=== PATIENT | male | born 1940 | race Caucasian/White ===

== ENCOUNTER 2017-11-23 13:45 | Outpatient (CLI) | payer OTHER ==
--- NOTE | 2017-11-23 14:37 | DI ---
EXAM: Eight views of the cervical spine. History: Neck pain. Findings: No acute fracture. No prevertebral soft tissue swelling. Predental space is not widened. 2 mm anterolisthesis of C5 on C6. Mild to moderate multilevel degenerative disc space narrowing wi th a few small osteophytes. The oblique images demonstrate multilevel bilateral bony neural foramina l narrowing secondary to uncovertebral and facet hypertrophy that is worse on the left and at least m oderate in degree. Impression: 1. No acute fracture. 2. Minimal anterolisthesis of C5 on C6. 3. Degenerative changes. If symptoms persist, recommend correlation with MRI.
== END 2017-11-23 13:46 | disposition home or self-care (01) ==
LOC: RAD 13:45
PROVIDERS: ATTEND Family Medicine
DX: M54.2 Cervicalgia (principal)

== ENCOUNTER 2023-06-06 13:45 | Inpatient (IN) ==
[2023-06-06 13:58] VITALS: BMI 28.5
--- NOTE | 2023-06-06 14:25 | ED.PDOC ---
General ED Provider: Dr. FAITH LYNN MD Chief Complaint: Fever Stated Complaint: Patient with history of COPD and hypertension along with dementia complains of having a fever the past 2 days states patient developed a lethargy and confused on occasion denies coughing, dyspnea, difficulty breathing, urinary symptoms, and diarrhea. Patient does complain of having a headache behind his eyes and around his nose. He denies sinus drainage, sore throat, neck stiffness. states that patient has been more confused than normal. Time Seen by Provider: 06/06/23 14:24 Mode of Arrival: Ambulance Information Source: Patient and Family Primary Care Provider: JOHN VANEGAS Nursing and Triage Documentation Reviewed and Agree: Yes Review of Systems Review Of Systems Constitutional: Reports Fever and Malaise Eyes: Reports No symptoms Ears, Nose, Mouth, Throat: Reports Other (Pain around his eyes and his nose denies nasal drainage) Respiratory: Reports No symptoms and Other (Denies coughing, dyspnea,) Cardiac: Reports No symptoms GI: Reports No symptoms : Reports No symptoms Musculoskeletal: Reports No symptoms Skin: Reports No symptoms Neurological: Reports No symptoms Endocrine: Reports No symptoms Hematologic/Lymphatic: Reports No symptoms All Other Systems: Reviewed and Negative [facility] Social History Smoking and tobacco status: Never smoker Physical Exam Physical Exam Appearance: Reports Well-appearing Ill-appearing: None Pain Distress: None Eyes: Reports GAYLA and EOMI ENT: Reports Ears normal Neck: Supple Respiratory: Reports Airway patent, Breath sounds clear and Breath sounds equal Cardiovascular: Reports RRR, Pulses normal, No rub and No murmur GI/: Reports Soft, Nontender, No masses and Bowel sounds normal Musculoskeletal: Reports Normal strength, ROM intact, No edema and No calf tenderness Skin: Reports Warm and Dry Neurological: Reports Sensation intact, Motor intact, Alert and Oriented (Patient is alert oriented x 2 conversational, answers some questions questions appropriately) Psychiatric: Reports Affect appropriate, Mood appropriate and Other Interpretation EKG Interpretation EKG Interpretation By: ED Physician Time of EKG #1: 15:09 Rate: Normal Rhythm: Sinus Ectopy: None [place]: NL ST Segment: Normal Interpretation: Normal sinus rhythm with rate of 75 occasional PVC there is no ischemic jeana Radiology Interpretation Radiology Interpretation By: Radiologist Radiology Results: Negative Exam Interpreted: Portable CXR Xray Comments: No acute cardiopulmonary process Physician Notification Case Discussed Physician Notified: Dr. Vanegas Time of Notification: 20:22 Comments: Discussed the patient's progress and laboratory data as well as portable chest x-ray and his CT scan with the history of patient being more confused than normal recommendations for observation to the hospitalist Physician Notified: Discussed with hospitalist Nicolas Harper Time of Notification: 20:40 Comments: Discussed results of all laboratory data, portable chest x-ray and head CT scan and patient's progress throughout emergency room visit states that the patient be more confused than normal,recommendation made for observation Critical Care Note Critical Care Note Total Critical Care Time (mins): 0 Course Course 06/06/23 15:31 06/06/23 15:31 Orders, Labs, Meds: Lab Review 06/06/23 06/06/23 06/06/23 14:05 15:31 18:37 WBC 10.62 H RBC 4.92 Hgb 16.1 Hct 48.9 MCV 99.4 H MCH 32.7 H MCHC 32.9 RDW Coeff of Vamsi 13.4 Plt Count 223 Immature Gran % (Auto) 0.5 Neut % (Auto) 77.9 H Lymph % (Auto) 9.4 L [place] % (Auto) 11.0 H Eos % (Auto) 0.7 Baso % (Auto) 0.5 Neut # (Auto) 8.3 H Lymph # (Auto) 1.0 [place] # (Auto) 1.2 Eos # (Auto) 0.1 Baso # (Auto) 0.1 Immature Gran # (Auto) 0.1 Sodium 133.4 L Potassium 3.75 Chloride 101.4 Carbon Dioxide 27.3 Anion Gap 8.45 BUN 12.6 Creatinine 1.04 Estimated GFR (MDRD) 68.00 BUN/Creatinine Ratio 12.11 Glucose 125.2 H Calcium 8.98 Total Bilirubin 0.96 AST 21.6 ALT 25.4 Alkaline Phosphatase 72.4 Troponin I 0.013 Total Protein 7.72 Albumin 4.41 Globulin 3.31 Albumin/Globulin Ratio 1.33 Urine Color Yellow Urine Clarity Clear Urine pH 6.5 Ur Specific [place] >=1.030 Urine Protein Negative Urine Glucose (UA) Negative Urine Ketones 1+ H Urine Blood Negative Urine Nitrite Negative Urine Bilirubin Negative Urine Urobilinogen 0.2 Ur Leukocyte Esterase Negative Urine Microscopic WBC 2-5 Ur Squamous Epith Cells 2-5 Influ A Molecular Assay Negative by naat Influ B Molecular Assay Negative by naat SARS CoV-2 RNA Rapid GARRETT Negative Orders Category Date Time Status EKG-(ED ONLY) Stat CARDIO 06/06/23 16:31 Completed CBC W/ AUTO DIFF Stat LAB 06/06/23 15:31 Completed CMP [COMPREHENSIVE METABOLIC PANEL] Stat LAB 06/06/23 15:31 Completed COVID [SARS COV-2 RNA RAPID GARRETT] Stat LAB 06/06/23 14:05 Completed FLU A & B MOLECULAR [FLU A/B MOLECULAR] Stat LAB 06/06/23 14:05 Completed TROPONIN I Stat LAB 06/06/23 15:31 Completed URINALYSIS C & S IF INDICATED Stat LAB 06/06/23 18:37 Completed Ceftriaxone/D5w 1 gm Premix [Rocephin 1 gm/50 ml D5w] Meds 06/06/23 17:16 Discontinued 1 gm in 50 ml IV ONCE Morphine Sulfate [Morphine 2 mg/ml Syringe] Meds 06/06/23 16:15 Discontinued 2 mg IVP ONCE ONE Ondansetron HCl/Pf [Zofran 4 mg/2 ml] Meds 06/06/23 16:15 Discontinued 4 mg IM ONCE STA Sodium Chloride 0.9% [Sodium Chloride] 500 ml Meds 06/06/23 14:30 Discontinued IV 200 mls/hr CHEST, 1V AP ONLY Stat RADS 06/06/23 14:[address] HEAD W/O CONTRAST Stat RADS 06/06/23 14:30 Completed Medications Discontinued Medications Generic Name Dose Route Start Last Admin Trade Name Freq PRN Reason Stop Dose Admin Sodium Chloride 500 mls @ 200 mls/hr 06/06/23 14:30 06/06/23 15:10 Sodium Chloride IV 06/06/23 16:59 200 mls/hr .Q2H30M STA Administration CEFTRIAXONE/D5W 1 GM PREMIX 1 gm in 50 mls @ 100 mls/hr 06/06/23 17:16 06/06/23 17:52 Rocephin 1 Gm/50 Ml D5w IV 06/06/23 17:45 100 mls/hr ONCE ONE Administration Morphine Sulfate 2 mg 06/06/23 16:15 06/06/23 16:26 Morphine Sulfate 2 Mg/Ml Syringe IVP 06/06/23 16:16 2 mg ONCE ONE Administration Ondansetron HCl 4 mg 06/06/23 16:15 06/06/23 16:25 Ondansetron Hcl/Pf 4 Mg/2 Ml Sdv IM 06/06/23 16:16 4 mg ONCE STA Administration Vital Signs: Temp Pulse Resp BP Pulse Ox 06/06/23 13:50 98.4 F 85 18 147/86 H 95 Discharge Plan Discharge Patient Disposition: PLACED OBSERVATION Discharge Problem: Acute alteration in mental status, Fever of unknown origin Prescriptions: No Action clonidine HCl 0.1 mg Tablet 0.4 mg PO BID prednisone 5 mg Tablet 5 mg PO DAILY Rx Instructions: as needed diltiazem HCl 240 mg Capsule,Extended Release 24 Hr 240 mg PO DAILY tamsulosin 0.4 mg Capsule 0.4 mg PO DAILY memantine [Namenda] 10 mg Tablet 5 mg PO QAM levothyroxine 200 mcg tablet 200 mcg PO ONCE albuterol sulfate [Ventolin HFA] 90 mcg/actuation HFA aerosol inhaler 1 inh INHALATION Q6H PRN (Reason: shortness of breath or wheezing) hydrocodone-acetaminophen 5-325 mg tablet 1 tab PO Q6H PRN (Reason: pain) Rx Instructions: 5/325 alendronate 35 mg tablet 35 mg PO WEEKLY fluticasone furoate-vilanterol [Breo Ellipta] 200-25 mcg/dose blister with device 1 inh inhalation DAILY calcium carbonate 500 mg calcium (1,250 mg) tablet 500 mg PO DAILY melatonin 10 mg capsule 10 mg PO BEDTIME aspirin [Adult Low Dose Aspirin] 81 mg tablet,delayed release (DR/EC) 81 mg PO DAILY diphenhydramine HCl [Benadryl] 25 mg capsule 25 mg PO BEDTIME multivitamin [Daily Multi-Vitamin] Tablet 1 tab PO DAILY Did you review [place] [employer] for ALL controlled substances?: Not Applicable ED Provider: FAITH LYNN Condition: Stable Physician Progress Note: History obtained from patient although spouse patient is a history of dementia, COPD hypertension has had a fever the past 2 days. Denies history of coughing, nasal congestion, dyspnea chest pain diaphoresis palpitations arthralgia nausea vomiting diarrhea. Patient reported having a headache behind his eyes and around his nose. states that patient has been more confused than normal EKG interpretation normal sinus rhythm rate of 75 occasional PVC there is no ischemic changes there is no prolongation of ND QT interval. Portable chest x-ray interpretation by radiologist, shows no acute cardiopulmonary process. Head CT scan interpretation by radiologist shows no infarction hemorrhage midline shift. All laboratory data reveals normal limits CBC, BMP, COVID is negative, influenza A and influenza B are negative Patient given normal saline 1 L at 200 mL/hour, Patient administered Rocephin 1 g IV piggyback for frontal sinusitis. Patient also administered morphine sulfate 2 mg and Zofran 4 mg IV Differential diagnosis: 1) fever unknown origin 2) altered mental status Discussed with Dr. Guy at 2021 with recommendations for observation to the hospitalist. Discussed with Nicolas Harper hospitalist at 2043 observation []
[2023-06-06] MEDS ORDERED: SODIUM CHLORIDE 500 ML IV STA (14:30)
[2023-06-06 14:56] LABS: SARS COV-2 RNA RAPID NAAT NEGATIVE (NEGATIVE)
[2023-06-06 15:20] LABS: MOLECULAR FLU A NEGATIVE BY NAAT (NEGATIVE); MOLECULAR FLU B NEGATIVE BY NAAT (NEGATIVE)
[2023-06-06 15:37] LABS: BASOPHILS # (AUTO) 0.1 K/uL (0-0.2); BASOPHILS % (AUTO) 0.5 % (0.0-3.0); EOSINOPHILS # (AUTO) 0.1 K/ul (0.0-0.7); EOSINOPHILS % (AUTO) 0.7 % (0.0-7.0); HEMATOCRIT 48.9 % (42.0-52.0); HEMOGLOBIN 16.1 g/dl (14.0-18.0); IMMATURE GRANULOCYTE # (AUTO) 0.1 (0.0-1.0); IMMATURE GRANULOCYTE % (AUTO) 0.5 % (0.0-5.0); LYMPHOCYTES % (AUTO) 9.4 (10.0-50.0); MEAN CORPUSCULAR HEMOGLOBIN 32.7 pg (27.0-31.0); MEAN CORPUSCULAR HGB CONC 32.9 (31.8-35.4); MEAN CORPUSCULAR VOLUME 99.4 fl (80.0-94.0); MONOCYTES # (AUTO) 1.2 K/uL (0.4-2.0); NEUTROPHILS # (AUTO) 8.3 K/ul (2.0-6.9); NEUTROPHILS % (AUTO) 77.9 % (42.2-75.2); PLATELET COUNT 223 10^3/uL (140-440); RDW COEFFICIENT OF VARIATION 13.4 % (11.6-14.8); RED BLOOD COUNT 4.92 10^6/ul (4.70-6.10); WHITE BLOOD COUNT 10.62 K/ul (4.2-10.2)
[2023-06-06 15:48] LABS: ALANINE AMINOTRANSFERASE 25.4 U/L (0-50); ALBUMIN 4.41 g/dL (3.5-5.0); ALKALINE PHOSPHATASE 72.4 U/L (56-119); ASPARTATE AMINO TRANSFERASE 21.6 U/L (17-59); BILIRUBIN,TOTAL 0.96 mg/dL (0.2-1.3); BLOOD UREA NITROGEN 12.6 mg/dL (9-20); CALCIUM 8.98 mg/dL (8.4-10.2); CARBON DIOXIDE 27.3 mmol/L (22-30.0); CHLORIDE 101.4 mmol/L (98-107); CREATININE 1.04 mg/dL (0.60-1.10); GLUCOSE 125.2 mg/dL (74-106); POTASSIUM 3.75 mmol/L (3.5-5.1); SODIUM 133.4 mmol/L (134.5-145); TOTAL PROTEIN 7.72 g/dL (6.3-8.2)
--- NOTE | 2023-06-06 15:53 | DI ---
EXAM: CHEST RADIOGRAPH TECHNIQUE: Single frontal chest radiograph. COMPARISON: 02/03/2020 HISTORY: Cough FINDINGS: The heart and mediastinum are normal. The lungs and pleural spaces are stable. No acute abnormality of the bones or soft tissues is identified. IMPRESSION: No evidence of acute disease.
[2023-06-06 16:00] LABS: TROPONIN I 0.013 ng/ml (0.0000-0.120)
--- NOTE | 2023-06-06 16:07 | CT ---
EXAM: CT HEAD WITHOUT CONTRAST TECHNIQUE: Noncontrast CT of the head with multiple reformats. HISTORY: Headache behind eyes. Altered mental status. COMPARISON: CT head 03/01/2020. FINDINGS: No evidence of acute infarction, hemorrhage, or mass. Enlarged perivascular spaces in the basal ganglia. Mild brain volume loss. Mild nonspecific white m atter hypodensities, likely chronic small vessel changes. No brain herniation. Patent basilar cisterns. Ventricles are proportional to brain volume. No acute osseous abnormality. Bilateral lens replacements of the globes. Mild atherosclerotic calcifications of the carotid siphons and vertebral arteries. IMPRESSION: No acute intracranial abnormality. Senescent changes. All CT scans are performed using dose optimization techniques as appropriate to the performed exam an d include at least one of the following: Automated exposure control, adjustment of the mA and/or kV according t o size, and the use of iterative reconstruction technique.
[2023-06-06] MEDS ORDERED: MORPHINE 2 MG/ML SYRINGE IVP ONE (16:15)
[2023-06-06] MEDS ORDERED: ZOFRAN 4 MG/2 ML IM STA (16:15)
[2023-06-06] MEDS ORDERED: ROCEPHIN 1 GM/50 ML D5W 1 GM/50 ML BAG IV ONE (17:16)
[2023-06-06 18:46] LABS: BILIRUBIN,URINE Negative (NEGATIVE); CLARITY,URINE Clear (CLEAR); COLOR,URINE Yellow (YELLOW); GLUCOSE, URINE (UA) Negative (NEGATIVE); KETONES,URINE 1+ (NEGATIVE); LEUKOCYTE ESTERASE ,URINE Negative (NEGATIVE); NITRITE,URINE Negative (NEGATIVE); PH,URINE 6.5 (5-9); PROTEIN,URINE Negative (NEGATIVE); URINE, BLOOD Negative (NEGATIVE); UROBILINOGEN,URINE 0.2 (0.2)
[2023-06-06] MEDS ORDERED: SODIUM CHLORIDE 1,000 ML IV SCH (21:00)
[2023-06-06 21:46] LABS: RSV MOLECULAR NEGATIVE BY NAAT (NEGATIVE)
[2023-06-06] MEDS ORDERED: ATIVAN IVP ONE (22:29)
[2023-06-07 05:45] LABS: BASOPHILS % (AUTO) 0.4 % (0.0-3.0); HEMATOCRIT 40.7 % (42.0-52.0); HEMOGLOBIN 13.8 g/dl (14.0-18.0); IMMATURE GRANULOCYTE % (AUTO) 0.4 % (0.0-5.0); LYMPHOCYTES # (AUTO) 0.9 K/uL (0.60-3.4); LYMPHOCYTES % (AUTO) 8.4 (10.0-50.0); MEAN CORPUSCULAR HEMOGLOBIN 33.1 pg (27.0-31.0); MEAN CORPUSCULAR HGB CONC 33.9 (31.8-35.4); MEAN CORPUSCULAR VOLUME 97.6 fl (80.0-94.0); MONOCYTES # (AUTO) 1.1 K/uL (0.4-2.0); MONOCYTES % (AUTO) 10.3 (0-10); NEUTROPHILS # (AUTO) 8.7 K/ul (2.0-6.9); NEUTROPHILS % (AUTO) 80.5 % (42.2-75.2); PLATELET COUNT 208 10^3/uL (140-440); RDW COEFFICIENT OF VARIATION 13.1 % (11.6-14.8); RED BLOOD COUNT 4.17 10^6/ul (4.70-6.10); WHITE BLOOD COUNT 10.84 K/ul (4.2-10.2)
[2023-06-07 06:08] LABS: ALANINE AMINOTRANSFERASE 21.1 U/L (0-50); ALBUMIN 3.67 g/dL (3.5-5.0); ALKALINE PHOSPHATASE 47.3 U/L (56-119); BILIRUBIN,TOTAL 0.69 mg/dL (0.2-1.3); BLOOD UREA NITROGEN 11.6 mg/dL (9-20); CALCIUM 7.77 mg/dL (8.4-10.2); CARBON DIOXIDE 19.8 mmol/L (22-30.0); CREATININE 0.72 mg/dL (0.60-1.10); GLUCOSE 113.2 mg/dL (74-106); SODIUM 128.4 mmol/L (134.5-145); TOTAL PROTEIN 6.46 g/dL (6.3-8.2)
[2023-06-07 06:11] LABS: POTASSIUM 3.84 mmol/L (3.5-5.1)
[2023-06-07] MEDS: CALCIUM 500 + VIT D 5 MCG (200 IU) TABLET PO SCH (09:00)
[2023-06-07] MEDS: CATAPRES PO SCH ×2 (09:00→21:22)
[2023-06-07] MEDS: SODIUM CHLORIDE PO SCH ×4 (09:00→21:23)
[2023-06-07] MEDS: CARDIZEM CD PO SCH (09:00)
[2023-06-07] MEDS ORDERED: ASPIRIN EC PO SCH (09:00)
[2023-06-07] MEDS ORDERED: PREDNISONE PO SCH (09:00)
[2023-06-07] MEDS: MULTIVITAMIN TABLET PO SCH (09:05)
[2023-06-07] MEDS: SYMBICORT 160-4.5 MCG INHALER IH SCH ×2 (09:05→21:23)
[2023-06-07] MEDS: NAMENDA PO SCH (09:05)
[2023-06-07] MEDS: FLOMAX PO SCH (09:05)
[2023-06-07] MEDS: SODIUM CHLORIDE 1,000 ML IV SCH ×2 (09:29→17:52)
[2023-06-07] MEDS: ACETAMINOPHEN 1,000 MG/100 ML BAG IV PRN ×2 (10:50→18:33)
--- NOTE | 2023-06-07 10:52 | PCM ---
Date of Service Date Seen by Provider: 06/07/23 Time Seen by Provider: 09:00 Admit Day/Time Admission Date: 06/06/23 Reason for Admission Chief Complaint: FEVER; ALTERED MENTAL STATUS Hospital Provider Hospital Provider: LISA ALBRIGHT, [facility] [place] Care Physician Primary Care Physician: JOHN VANEGAS History of Present Illness History of Present Illness: 83 yo male presented to the ER with confusion and fever. Patient has pmh of dementia and is unable to provide HPI. reports that he has had mild dementia of memory loss including disorientation of place and time. However, he is normally able to carry on ADLs with minimal assistance. Since Monday, patient has not been able to carry out ADLs, increasing confusion and impulsiveness, and fever. Had complaints of headache but no other symptoms prior. Had a fever at home as high as 102. All testing in ER negative. Has not had fever since admission, but has continued to be confused. Sodium this am was found to be 128 despite IV fluids overnight. P atient is not on any medications to lower sodium, and has not been eating or drinking. Case Discussed With Case Discussed With: Patient's case was discussed with the ER Physicians, Dr. Rodriguez. [facility] Medical History Hernia, inguinal, bilateral surgical repair K40.20 - Bilateral inguinal hernia, without obstruction or gangrene, not specified as recurrent (ICD-10) Umbilical hernia repaired K42.9 - Umbilical hernia without obstruction or gangrene (ICD-10) Umbilical hernia K42.9 - Umbilical hernia without obstruction or gangrene (ICD-10) HTN (hypertension) I10 - Essential (primary) hypertension (ICD-10) HTN (hypertension) I10 - Essential (primary) hypertension (ICD-10) Family History Mother CAD (coronary artery disease) FATHER Myocardial infarction Social History Smoking and tobacco status: Never smoker Alcohol intake: unknown Adopted: No Household members: spouse Housing: house Lives independently: Yes Allergies Allergies Allergy/AdvReac Type Severity Reaction Status Date / Time ibuprofen AdvReac Fever Verified 06/06/23 13:49 Current Medications Home Medications clonidine HCl 0.1 mg tablet 0.4 mg PO BID 02/03/20 [History Confirmed 06/07/23 Last Taken 06/06/23] diltiazem HCl 240 mg capsule,24 hr,extended release 240 mg PO DAILY 02/03/20 [History Confirmed 06/07/23 Last Taken 06/06/23] prednisone 5 mg tablet 5 mg PO DAILY 02/03/20 [History Confirmed 06/07/23 Last Taken 06/06/23] tamsulosin 0.4 mg capsule 0.4 mg PO DAILY 02/03/20 [History Confirmed 06/07/23 Last Taken 06/06/23] memantine 10 mg tablet (Namenda) 5 mg PO QAM 12/27/20 [History Confirmed 06/07/23 Last Taken 06/06/23] albuterol sulfate 90 mcg/actuation aerosol inhaler (Ventolin HFA) 1 inh inhalation Q6H PRN shortness of breath or wheezing 06/06/23 [History Confirmed 06/06/23 Last Taken Unknown] alendronate 35 mg tablet 35 mg PO WEEKLY 06/06/23 [History Confirmed 06/07/23 Last Taken 05/31/23] aspirin 81 mg tablet,delayed release (Adult Low Dose Aspirin) 81 mg PO DAILY 06/06/23 [History Confirmed 06/07/23 Last Taken 06/06/23] calcium carbonate 500 mg calcium (1,250 mg) tablet 500 mg PO DAILY 06/06/23 [History Confirmed 06/07/23 Last Taken 06/06/23] diphenhydramine HCl 25 mg capsule (Benadryl) 25 mg PO BEDTIME 06/06/23 [History Confirmed 06/06/23 Last Taken Unknown] fluticasone furoate 200 mcg-vilanterol 25 mcg/dose inhalation powder (Breo Ellipta) 1 inh inhalation DAILY 06/06/23 [History Confirmed 06/07/23 Last Taken 06/06/23] hydrocodone 5 mg-acetaminophen 325 mg tablet 1 tab PO Q6H PRN pain 06/06/23 [History Confirmed 06/06/23 Last Taken 06/06/23 12:00 1 tab] levothyroxine 200 mcg tablet 200 mcg PO ONCE 06/06/23 [History Confirmed 06/07/23 Last Taken 06/06/23] melatonin 10 mg capsule 10 mg PO BEDTIME 06/06/23 [History Confirmed 06/07/23 Last Taken 06/06/23] multivitamin (Daily Multi-Vitamin tablet) 1 tab PO DAILY 06/06/23 [History Confirmed 06/07/23 Last Taken 06/06/23] Home Acetaminophen (Acetaminophen 325 Mg Tablet) 650 mg PO Q4H PRN PRN Reason: Mild Pain Aspirin (Aspirin 81 Mg Tablet.Dr) 81 mg PO DAILY [facility] Last Admin: 06/07/23 09:00 Dose: Not Given Budesonide/Formoterol Fumarate (Budesonide/Formoterol Fumarate 160/4.5 Mcg Inhaler) 2 puff IH BID [facility] Last Admin: 06/07/23 09:05 Dose: Not Given Calcium/Vitamin D (Calcium Carbonate/Vitamin D3 500 Mg/5 Mcg(200iu) 1 Each Tablet) 1 each PO DAILY [facility] Last Admin: 06/07/23 09:00 Dose: Not Given Clonidine (Clonidine Hcl 0.1 Mg Tablet) 0.4 mg PO BID [facility] Last Admin: 06/07/23 09:00 Dose: Not Given Diltiazem HCl (Diltiazem Hcl 120 Mg Cap.Er.24h) 240 mg PO DAILY [facility] Last Admin: 06/07/23 09:00 Dose: Not Given Diphenhydramine HCl (Diphenhydramine Hcl 25 Mg Capsule) 25 mg PO BEDTIME [facility] Sodium Chloride (Sodium Chloride) 1,000 mls @ 125 mls/hr IV .Q8H [facility] Last Admin: 06/07/23 09:29 Dose: 125 mls/hr Acetaminophen (Acetaminophen) 1,000 mg in 100 mls @ 400 mls/hr IV Q6HR PRN PRN Reason: Pain Last Admin: 06/07/23 10:50 Dose: 400 mls/hr Melatonin (Melatonin 3 Mg Tablet) 9 mg PO BEDTIME [facility] Memantine (Memantine Hcl 10 Mg Tablet) 5 mg PO QAM [facility] Last Admin: 06/07/23 09:05 Dose: Not Given Multivitamins (Multivitamin 1 Tab) 1 tab PO DAILY [facility] Last Admin: 06/07/23 09:05 Dose: Not Given Non-Formulary Medication (Alendronate) 35 mg PO WEEKLY FOSAMAX2 [facility] Last Admin: 06/07/23 09:00 Dose: Not Given Prednisone (Prednisone 5 Mg Tablet) 5 mg PO DAILY [facility] Last Admin: 06/07/23 09:05 Dose: Not Given Sodium Chloride (Sodium Chloride 1 Gm Tablet) 1 gm PO QID [facility] Last Admin: 06/07/23 09:00 Dose: Not Given Tamsulosin HCl (Tamsulosin Hcl 0.4 Mg Cap.Er.24h) 0.4 mg PO DAILY [facility] Last Admin: 06/07/23 09:05 Dose: Not Given Discontinued Medications Sodium Chloride (Sodium Chloride) 500 mls @ 200 mls/hr IV .Q2H30M STA Stop: 06/06/23 16:59 Last Infusion: 06/07/23 07:11 Dose: Infused CEFTRIAXONE/D5W 1 GM PREMIX (Rocephin 1 Gm/50 Ml D5w) 1 gm in 50 mls @ 100 mls/hr IV ONCE ONE Stop: 06/06/23 17:45 Last Admin: 06/06/23 17:52 Dose: 100 mls/hr Sodium Chloride (Sodium Chloride) 1,000 mls @ 75 mls/hr IV .[id number] [facility] Last Infusion: 06/07/23 09:30 Dose: Infused Lorazepam (Lorazepam Inj 2 Mg/Ml Vial) 1 mg IVP ONCE ONE Stop: 06/06/23 22:30 Last Admin: 06/06/23 23:03 Dose: 1 mg Morphine Sulfate (Morphine Sulfate 2 Mg/Ml Syringe) 2 mg IVP ONCE ONE Stop: 06/06/23 16:16 Last Admin: 06/06/23 16:26 Dose: 2 mg Non-Formulary Medication (Calcium Carbonate) 500 mg PO DAILY [facility] Non-Formulary Medication (Fluticasone Furoate-Vilanterol [Breo Ellipta]) 1 inh IH DAILY [facility] Ondansetron HCl (Ondansetron Hcl/Pf 4 Mg/2 Ml Sdv) 4 mg IM ONCE STA Stop: 06/06/23 16:16 Last Admin: 06/06/23 16:25 Dose: 4 mg Physical examination Most Recent Vital Signs: Most Recent Vital Signs Temperature 99.7 F 06/07/23 10:00 Temperature Source Tympanic 06/07/23 10:00 Temperature Source Oral 06/06/23 13:50 Pulse Rate 87 06/07/23 10:00 Respiratory Rate 20 06/07/23 10:00 Blood Pressure 153/75 H 06/07/23 10:00 Blood Pressure Mean 101 06/07/23 10:00 Blood Pressure Left Arm 171/84 06/06/23 21:56 Blood Pressure Location Left Arm 06/07/23 10:00 Blood Pressure Position Supine 06/07/23 10:00 O2 Sat by Pulse Oximetry 95 06/07/23 10:00 Oxygen Delivery Method Room Air 06/07/23 10:00 Height 6 ft 06/06/23 21:56 Weight 210 lb 06/06/23 21:56 Appearance: Positive No Apparent Distress Skin: Positive Warm and Good Turgor HEENT: Positive Normocephalic and PERRLA Neck: Positive Supple and Midline Trachea Chest/Lungs: Positive Symmetrical With Equal Breath Sounds, Clear to Auscultation Bilaterally and Good Air Movement all 4 Lung Davis Heart: Positive RRR and Pulses Normal GI/: Positive Soft, Nontender and Bowel Sounds Normal Extremities: Positive Intact Peripheral Pulses, Stable Joints Without Laxity and Good ROM in All Joints Neurological: Positive Sensation Intact, Motor intact, Disorinted and Other (unable to follow commands) Labs This Visit Labs This Visit: Labs This Visit 06/06/23 06/06/23 06/06/23 14:05 15:31 18:37 WBC 10.62 H RBC 4.92 Hgb 16.1 Hct 48.9 MCV 99.4 H MCH 32.7 H MCHC 32.9 RDW Coeff of Vamsi 13.4 Plt Count 223 Immature Gran % (Auto) 0.5 Neut % (Auto) 77.9 H Lymph % (Auto) 9.4 L [place] % (Auto) 11.0 H Eos % (Auto) 0.7 Baso % (Auto) 0.5 Neut # (Auto) 8.3 H Lymph # (Auto) 1.0 [place] # (Auto) 1.2 Eos # (Auto) 0.1 Baso # (Auto) 0.1 Immature Gran # (Auto) 0.1 Sodium 133.4 L Potassium 3.75 Chloride 101.4 Carbon Dioxide 27.3 Anion Gap 8.45 BUN 12.6 Creatinine 1.04 Estimated GFR (MDRD) 68.00 BUN/Creatinine Ratio 12.11 Glucose 125.2 H Calcium 8.98 Total Bilirubin 0.96 AST 21.6 ALT 25.4 Alkaline Phosphatase 72.4 Troponin I 0.013 Total Protein 7.72 Albumin 4.41 Globulin 3.31 Albumin/Globulin Ratio 1.33 Procalcitonin Urine Color Yellow Urine Clarity Clear Urine pH 6.5 Ur Specific [place] >=1.030 Urine Protein Negative Urine Glucose (UA) Negative Urine Ketones 1+ H Urine Blood Negative Urine Nitrite Negative Urine Bilirubin Negative Urine Urobilinogen 0.2 Ur Leukocyte Esterase Negative Urine Microscopic WBC 2-5 Ur Squamous Epith Cells 2-5 Influ A Molecular Assay Negative by naat Influ B Molecular Assay Negative by naat RSV Antigen SARS CoV-2 RNA Rapid GARRETT Negative 06/06/23 06/06/23 06/07/23 20:54 21:11 05:31 WBC 10.84 H RBC 4.17 L Hgb 13.8 L Hct 40.7 L D MCV 97.6 H MCH 33.1 H MCHC 33.9 RDW Coeff of Vamsi 13.1 Plt Count 208 Immature Gran % (Auto) 0.4 Neut % (Auto) 80.5 H Lymph % (Auto) 8.4 L [place] % (Auto) 10.3 H Eos % (Auto) 0.0 Baso % (Auto) 0.4 Neut # (Auto) 8.7 H Lymph # (Auto) 0.9 [place] # (Auto) 1.1 Eos # (Auto) 0.0 Baso # (Auto) 0.0 Immature Gran # (Auto) 0.0 Sodium 128.4 L Potassium 3.84 Chloride 101.0 Carbon Dioxide 19.8 L D Anion Gap 11.44 BUN 11.6 Creatinine 0.72 Estimated GFR (MDRD) 105.00 BUN/Creatinine Ratio 16.11 Glucose 113.2 H Calcium 7.77 L Total Bilirubin 0.69 AST 22.0 ALT 21.1 Alkaline Phosphatase 47.3 L D Troponin I Total Protein 6.46 Albumin 3.67 Globulin 2.79 Albumin/Globulin Ratio 1.31 Procalcitonin < 0.05 Urine Color Urine Clarity Urine pH Ur Specific [place] Urine Protein Urine Glucose (UA) Urine Ketones Urine Blood Urine Nitrite Urine Bilirubin Urine Urobilinogen Ur Leukocyte Esterase Urine Microscopic WBC Ur Squamous Epith Cells Influ A Molecular Assay Influ B Molecular Assay RSV Antigen Negative by naat SARS CoV-2 RNA Rapid GARRETT Imaging Imaging: COMPARISON: CT head 03/01/2020. FINDINGS: No evidence of acute infarction, hemorrhage, or mass. Enlarged perivascular spaces in the basal ganglia. Mild brain volume loss. Mild nonspecific white matter hypodensities, likely chronic small vessel changes. No brain herniation. Patent basilar cisterns. Ventricles are proportional to brain volume. No acute osseous abnormality. Bilateral lens replacements of the globes. Mild atherosclerotic calcifications of the carotid siphons and vertebral arteries. IMPRESSION: No acute intracranial abnormality. Senescent changes. EXAM: CHEST RADIOGRAPH FINDINGS: The heart and mediastinum are normal. The lungs and pleural spaces are stable. No acute abnormality of the bones or soft tissues is identified. IMPRESSION: No evidence of acute disease. Review Statement Review Statement: I have independently reviewed and interpreted the labs/EKGs/imaging that were ordered by the ER provider. I have reviewed all outside records that are available currently in our EMR including imaging/notes/labs from previous visits. Plan Plan: 1. Symptomatic Hyponatremia - low sodium despite fluids, AMS noted, NS@100mL/hr, salt tabs, osmolalities ordered 2. Fever, unknown origin - UA, chest x-ray, covid, flu, RSV negative. unable to complete respiratory panel, blood cultures pending 3. Acute Metabolic Encephalopathy - likely due to above and viral illness, avoid neurologically altering agents, monitor. 4. Dementia - r/o acute illness, appears worsening, dispo tbd 5. A fib - chronic, stable, continue home medications 6. Hypertension - chronic, continue home medications DVT Prophylaxis: ASA Time Spent: Greater than 80 minutes spent with patient, 50% of the time spent with this patient was devoted to counseling and coordination of care. [facility] Plannin minutes spent discussing advance care planning. Disposition: Admit to: Med/Surg Inpatient Discussed Plan of Care with Dr. Guadalupe Zeng. Medications Medication Orders: Medications Ordered Category Date Time Status Acetaminophen Meds 06/07/23 10:23 Active 1,000 mg in 100 ml IV Q6HR Acetaminophen [Tylenol] Meds 06/06/23 20:41 Active 650 mg PO Q4H PRN Aspirin [Aspirin EC] Meds 06/07/23 09:00 Active 81 mg PO DAILY Budesonide/Formoterol Fumarate [Symbicort 160-4.5 Mcg Meds 06/07/23 09:00 Active Inhaler] 2 puff IH BID Calcium Carbonate/Vitamin D3 [Calcium 500 + Vit D 5 Mcg Meds 06/07/23 09:00 Active (200 Iu) Tablet] 1 each PO DAILY Clonidine HCl [Catapres] Meds 06/07/23 09:00 Active 0.4 mg PO BID Diltiazem HCl [Cardizem Cd] Meds 06/07/23 09:00 Active 240 mg PO DAILY Diphenhydramine HCl [Benadryl] Meds 06/07/23 21:00 Active 25 mg PO BEDTIME Melatonin Meds 06/07/23 21:00 Active 9 mg PO BEDTIME Memantine HCl [Namenda] Meds 06/07/23 09:00 Active 5 mg PO QAM Multivitamin [Multivitamin Tablet] Meds 06/07/23 09:00 Active 1 tab PO DAILY Prednisone Meds 06/07/23 09:00 Active 5 mg PO DAILY Sodium Chloride Meds 06/07/23 09:00 Active 1 gm PO QID Sodium Chloride 0.9% [Sodium Chloride] 1,000 ml Meds 06/07/23 08:14 Active IV 125 mls/hr Tamsulosin HCl [Flomax] Meds 06/07/23 09:00 Active 0.4 mg PO DAILY alendronate Meds 06/07/23 09:00 Active 35 mg PO WEEKLY FOSAMAX2
[2023-06-07 16:21] LABS: BLOOD UREA NITROGEN 12.9 mg/dL (9-20); CALCIUM 8.32 mg/dL (8.4-10.2); CARBON DIOXIDE 24.2 mmol/L (22-30.0); CHLORIDE 99.4 mmol/L (98-107); CREATININE 0.8 mg/dL (0.60-1.10); GLUCOSE 102.6 mg/dL (74-106); POTASSIUM 3.99 mmol/L (3.5-5.1); SODIUM 131.2 mmol/L (134.5-145)
[2023-06-07] MEDS: VISTARIL INJ IM PRN (16:44)
[2023-06-07] MEDS ORDERED: BENADRYL IVP STA (19:35)
[2023-06-07] MEDS ORDERED: BENADRYL PO SCH (21:00)
[2023-06-07] MEDS ORDERED: BENADRYL 25 MG in SODIUM CHLORIDE 100ML 100 ML IV SCH (21:00)
[2023-06-07] MEDS ORDERED: NON-FORMULARY MEDICATION (Melatonin 10 mg capsule) PO SCH (21:00)
[2023-06-07] MEDS: MELATONIN PO SCH (21:23)
--- NOTE | 2023-06-07 22:33 | CT ---
EXAM: CT OF THE CHEST WITHOUT CONTRAST History: Short of breath Comparison: Chest radiograph 06/06/2023 Technique: Multiplanar CT images through the thorax were obtained without the administration of IV c ontrast FINDINGS: Heart size is normal. Trace pericardial fluid. Coronary calcifications. No thoracic aor tic aneurysm. No intrathoracic lymphadenopathy. Benign calcified granulomas are seen within the tho rax. No consolidation within the lungs. No pleural fluid and no pneumothorax. A few tiny the 3-4 m m nodules are seen within the left lung. No suspicious lung masses or lung nodules. Within the visualized upper abdomen, no grossly acute findings. The gallbladder is mildly distended. No acute osseous abnormalities. Impression: 1. No acute intrathoracic process. 2. Coronary artery disease 3. Small benign appearing nodules within the left lung most likely an infectious or inflammatory cale ology All CT scans are performed using dose optimization techniques as appropriate to the performed exam an d include at least one of the following: Automated exposure control, adjustment of the mA and/or kV according t o size, and the use of iterative reconstruction technique.
[2023-06-08] MEDS: VISTARIL INJ IM PRN (02:13)
[2023-06-08] MEDS: SODIUM CHLORIDE 1,000 ML IV SCH ×3 (03:02→20:27)
[2023-06-08 06:13] LABS: BASOPHILS % (AUTO) 0.3 % (0.0-3.0); EOSINOPHILS % (AUTO) 0.1 % (0.0-7.0); HEMATOCRIT 41.7 % (42.0-52.0); HEMOGLOBIN 14.4 g/dl (14.0-18.0); IMMATURE GRANULOCYTE % (AUTO) 0.3 % (0.0-5.0); LYMPHOCYTES # (AUTO) 1.2 K/uL (0.60-3.4); LYMPHOCYTES % (AUTO) 9.5 (10.0-50.0); MEAN CORPUSCULAR HEMOGLOBIN 33.5 pg (27.0-31.0); MEAN CORPUSCULAR HGB CONC 34.5 (31.8-35.4); MONOCYTES # (AUTO) 1.4 K/uL (0.4-2.0); MONOCYTES % (AUTO) 10.6 (0-10); NEUTROPHILS # (AUTO) 10.2 K/ul (2.0-6.9); NEUTROPHILS % (AUTO) 79.2 % (42.2-75.2); PLATELET COUNT 224 10^3/uL (140-440); RDW COEFFICIENT OF VARIATION 12.9 % (11.6-14.8); WHITE BLOOD COUNT 12.82 K/ul (4.2-10.2)
[2023-06-08 06:39] LABS: ALANINE AMINOTRANSFERASE 26.5 U/L (0-50); ALBUMIN 3.79 g/dL (3.5-5.0); ALKALINE PHOSPHATASE 54.3 U/L (56-119); ASPARTATE AMINO TRANSFERASE 43.9 U/L (17-59); BILIRUBIN,TOTAL 0.78 mg/dL (0.2-1.3); BLOOD UREA NITROGEN 14.8 mg/dL (9-20); CALCIUM 8.49 mg/dL (8.4-10.2); CARBON DIOXIDE 23.2 mmol/L (22-30.0); CHLORIDE 101.4 mmol/L (98-107); CREATININE 0.86 mg/dL (0.60-1.10); GLUCOSE 91.2 mg/dL (74-106); POTASSIUM 3.98 mmol/L (3.5-5.1); SODIUM 131.2 mmol/L (134.5-145); TOTAL PROTEIN 6.24 g/dL (6.3-8.2)
[2023-06-08] MEDS ORDERED: GLYDO TRANSURETH ONE (09:40)
[2023-06-08] MEDS ORDERED: ATIVAN IVP ONE (09:46)
[2023-06-08] MEDS: CALCIUM 500 + VIT D 5 MCG (200 IU) TABLET PO SCH (09:47)
[2023-06-08] MEDS: ASPIRIN EC PO SCH (09:47)
[2023-06-08] MEDS: CATAPRES PO SCH ×2 (09:48→20:41)
[2023-06-08] MEDS: MULTIVITAMIN TABLET PO SCH (09:48)
[2023-06-08] MEDS: NAMENDA PO SCH (09:48)
[2023-06-08] MEDS: CARDIZEM CD PO SCH (09:48)
[2023-06-08] MEDS: FLOMAX PO SCH (09:48)
[2023-06-08] MEDS: PREDNISONE PO SCH (09:49)
[2023-06-08] MEDS: SODIUM CHLORIDE PO SCH ×4 (09:49→20:41)
[2023-06-08] MEDS: SYMBICORT 160-4.5 MCG INHALER IH SCH ×2 (09:49→20:41)
[2023-06-08] MEDS: ROCEPHIN 1 GM/50 ML D5W 1 GM/50 ML BAG IV SCH (10:18)
[2023-06-08 11:10] LABS: BILIRUBIN,URINE Negative (NEGATIVE); CLARITY,URINE Clear (CLEAR); COLOR,URINE Yellow (YELLOW); GLUCOSE, URINE (UA) Negative (NEGATIVE); KETONES,URINE 3+ (NEGATIVE); LEUKOCYTE ESTERASE ,URINE Negative (NEGATIVE); NITRITE,URINE Negative (NEGATIVE); PROTEIN,URINE Negative (NEGATIVE); URINE, BLOOD 3+ (NEGATIVE); UROBILINOGEN,URINE 0.2 (0.2)
[2023-06-08] MEDS: VANCOMYCIN 1 GRAM/200 ML PREMIX 1 GM/200 ML BAG IV SCH ×2 (11:17→20:24)
[2023-06-08 11:21] LABS: URINE RBC, MICROSCOPIC 50-100 (0-2)
--- NOTE | 2023-06-08 12:08 | PCM.PROG ---
Date/Time Seen Date Seen by Provider: 06/08/23 Time Seen by Provider: 09:15 Provider [facility] Chief Complaint Chief Complaint: FEVER; ALTERED MENTAL STATUS Subjective Subjective: Continues to have fever. More awake and talkative today. Complaining to holding lower abdomen. Had to be straight cathed last night due to no urine output. Has hx of BPH. Objective Appearance: Positive Ill-Appearing Chest/Lungs: Positive Symmetrical With Equal Breath Sounds, Clear to Auscultation Bilaterally and Good Air Movement all 4 Lung Davis Heart: Positive RRR and Pulses Normal GI/: Positive Soft, Bowel Sounds Normal and Tender (to lower abdomen) Neurological: Positive Sensation Intact, Motor intact, Reflexes Intact, Disorinted and Other (responsive to verbal and painful stimuli, answering simple questions) Additional Findings: Rectal exam completed: prostate enlarged and tender on palpation Vital Signs Vital Signs: Vital Signs: Last 24 Hours 06/07/23 13:00 06/07/23 14:00 06/07/23 18:00 Temperature 98.9 F 99.1 F Temperature Source Tympanic Tympanic Pulse Rate 74 86 Respiratory Rate 20 22 H Blood Pressure 147/72 H 160/94 H Blood Pressure Mean 97 116 Blood Pressure Location Left Arm Left Arm Blood Pressure Position Supine Supine O2 Sat by Pulse Oximetry 96 95 Oxygen Delivery Method Room Air Room Air Telemetry Type Remote Telemetry Telemetry Monitoring Continues Irregular Telemetry Rate (Approximate) 90-100 BPM Telemetry Heart Rate 103 H EKG MT Interval 0.17 EKG QRS Interval 0.[address] w/ PVCs 06/07/23 20:00 06/07/23 22:00 06/08/23 05:12 Temperature 98.7 F 98.6 F Temperature Source Temporal Artery Scan Temporal Artery Scan Pulse Rate 83 94 Respiratory Rate 24 H 18 Blood Pressure 154/80 H 144/82 H Blood Pressure Mean 104 102 Blood Pressure Location Left Arm Left Arm Blood Pressure Position Supine Supine O2 Sat by Pulse Oximetry 96 96 Oxygen Delivery Method Room Air Room Air Room Air Telemetry Type Telemetry Monitoring Irregular Telemetry Rate (Approximate) Telemetry Heart Rate EKG MT Interval EKG QRS Interval Telemetry Strip Reading 06/08/23 10:00 06/08/23 11:30 Temperature 99.1 F 99.9 F Temperature Source Temporal Artery Scan Rectal Pulse Rate 93 81 Respiratory Rate 23 H 16 Blood Pressure 182/84 H 149/78 H Blood Pressure Mean 116 101 Blood Pressure Location Left Arm Left Arm Blood Pressure Position Supine Supine O2 Sat by Pulse Oximetry 95 97 Oxygen Delivery Method Room Air Room Air Telemetry Type Telemetry Monitoring Irregular Telemetry Rate (Approximate) Telemetry Heart Rate EKG MT Interval EKG QRS Interval Telemetry Strip Reading Lab Results Lab Results: Lab Results: Last 24 Hours 06/08/23 06/08/23 06/07/23 10:35 06:01 16:03 WBC 12.82 H RBC 4.30 L Hgb 14.4 Hct 41.7 L MCV 97.0 H MCH 33.5 H MCHC 34.5 RDW Coeff of Vamsi 12.9 Plt Count 224 Immature Gran % (Auto) 0.3 Neut % (Auto) 79.2 H Lymph % (Auto) 9.5 L [place] % (Auto) 10.6 H Eos % (Auto) 0.1 Baso % (Auto) 0.3 Neut # (Auto) 10.2 H Lymph # (Auto) 1.2 [place] # (Auto) 1.4 Eos # (Auto) 0.0 Baso # (Auto) 0.0 Immature Gran # (Auto) 0.0 Sodium 131.2 L 131.2 L Potassium 3.98 3.99 Chloride 101.4 99.4 Carbon Dioxide 23.2 24.2 Anion Gap 10.58 11.59 BUN 14.8 12.9 Creatinine 0.86 0.80 Estimated GFR (MDRD) 85.00 93.00 BUN/Creatinine Ratio 17.20 16.12 Glucose 91.2 102.6 Calcium 8.49 8.32 L Total Bilirubin 0.78 AST 43.9 ALT 26.5 Alkaline Phosphatase 54.3 L Total Protein 6.24 L Albumin 3.79 Globulin 2.45 Albumin/Globulin Ratio 1.54 Urine Color Yellow Urine Clarity Clear Urine pH 6.0 Ur Specific [place] >=1.030 Urine Protein Negative Urine Glucose (UA) Negative Urine Ketones 3+ H Urine Blood 3+ H Urine Nitrite Negative Urine Bilirubin Negative Urine Urobilinogen 0.2 Ur Leukocyte Esterase Negative Urine Microscopic RBC 50-100 Ur Squamous Epith Cells Not Reportable Ur Random Sodium 06/06/23 19:00 WBC RBC Hgb Hct MCV MCH MCHC RDW Coeff of Vamsi Plt Count Immature Gran % (Auto) Neut % (Auto) Lymph % (Auto) [place] % (Auto) Eos % (Auto) Baso % (Auto) Neut # (Auto) Lymph # (Auto) [place] # (Auto) Eos # (Auto) Baso # (Auto) Immature Gran # (Auto) Sodium Potassium Chloride Carbon Dioxide Anion Gap BUN Creatinine Estimated GFR (MDRD) BUN/Creatinine Ratio Glucose Calcium Total Bilirubin AST ALT Alkaline Phosphatase Total Protein Albumin Globulin Albumin/Globulin Ratio Urine Color Urine Clarity Urine pH Ur Specific [place] Urine Protein Urine Glucose (UA) Urine Ketones Urine Blood Urine Nitrite Urine Bilirubin Urine Urobilinogen Ur Leukocyte Esterase Urine Microscopic RBC Ur Squamous Epith Cells Ur Random Sodium 223 Additional Comments Additional Comments: I have independently reviewed and interpreted the labs/EKGs/imaging ordered during this hospital stay. I have reviewed outside records that are available in our EMR that pertain to medical stay including imaging/notes/labs from previous visits. Active Medications Active Medications: Medications Generic Name Dose Route Start Last Admin Trade Name Freq PRN Reason Stop Dose Admin Acetaminophen 650 mg 06/06/23 20:41 Acetaminophen 325 Mg Tablet PO Q4H PRN Mild Pain Aspirin 81 mg 06/08/23 09:00 06/08/23 09:47 Aspirin 81 Mg Tablet.Dr PO Not Given DAILYWM2 SHIRA Budesonide/Formoterol Fumarate 2 puff 06/07/23 09:00 06/08/23 09:49 Budesonide/Formoterol Fumarate 160/4.5 Mcg Inhaler IH Not Given BID SHIRA Calcium/Vitamin D 1 each 06/07/23 09:00 06/08/23 09:47 Calcium Carbonate/Vitamin D3 500 Mg/5 Mcg(200iu) 1 Each Tablet PO Not Given DAILY SHIRA Clonidine 0.4 mg 06/07/23 09:00 06/08/23 09:48 Clonidine Hcl 0.1 Mg Tablet PO Not Given BID SHIRA Diltiazem HCl 240 mg 06/07/23 09:00 06/08/23 09:48 Diltiazem Hcl 120 Mg Cap.Er.24h PO Not Given DAILY SHIRA Diphenhydramine HCl 25 mg 06/07/23 21:00 Diphenhydramine Hcl 25 Mg Capsule PO BEDTIME SHIRA Hydroxyzine HCl 25 mg 06/07/23 15:32 06/08/23 02:13 Hydroxyzine Hcl 25 Mg/Ml Vial IM 25 mg Q6H PRN Administration Agitation Sodium Chloride 1,000 mls @ 125 mls/hr 06/07/23 08:14 06/08/23 11:16 Sodium Chloride IV 125 mls/hr .Q8H SHIRA Administration Acetaminophen 1,000 mg in 100 mls @ 400 mls/hr 06/07/23 10:23 06/07/23 18:33 Acetaminophen IV 400 mls/hr Q6HR PRN Administration Pain CEFTRIAXONE/D5W 1 GM PREMIX 1 gm in 50 mls @ 100 mls/hr 06/08/23 09:30 06/08/23 10:18 Rocephin 1 Gm/50 Ml D5w IV 06/11/23 09:29 100 mls/hr DAILY SHIRA Administration VANCOMYCIN/WATER FOR INJ (PEG) 1 gm in 200 mls @ 200 mls/hr 06/08/23 11:00 06/08/23 11:17 Vancomycin 1 Gram/200 Ml Premix IV 06/11/23 10:59 200 mls/hr Q12HR SHIRA Administration Melatonin 9 mg 06/07/23 21:00 06/07/23 21:23 Melatonin 3 Mg Tablet PO Not Given BEDTIME SHIRA Memantine 5 mg 06/07/23 09:00 06/08/23 09:48 Memantine Hcl 10 Mg Tablet PO Not Given QAM SHIRA Multivitamins 1 tab 06/07/23 09:00 06/08/23 09:48 Multivitamin 1 Tab PO Not Given DAILY SHIRA Non-Formulary Medication 35 mg 06/07/23 09:00 06/08/23 06:29 Alendronate PO Not Given WEEKLY FOSAMAX2 SHIRA Prednisone 5 mg 06/08/23 09:00 06/08/23 09:49 Prednisone 5 Mg Tablet PO Not Given DAILYWM2 [facility] Sodium Chloride 1 gm 06/07/23 09:00 06/08/23 09:49 Sodium Chloride 1 Gm Tablet PO Not Given QID SHIRA Tamsulosin HCl 0.4 mg 06/07/23 09:00 06/08/23 09:48 Tamsulosin Hcl 0.4 Mg Cap.Er.24h PO Not Given DAILY SHIRA Plan Plan: 1. Obstructive Uropathy secondary to Prostatitis and BPH - Eddy catheter placed, I&O, rocephin and vanc 2. Sepsis r/o - continued fever, UA, chest x-ray, covid, flu, RSV negative. un able to complete respiratory panel, blood cultures canceled/not ordered by ER doc - now pending, rocephin and vanc ordered 3. Symptomatic Hyponatremia - low sodium despite fluids, AMS noted, NS@100mL/hr, salt tabs, osmolalities ordered 4. Acute Metabolic Encephalopathy - Improving, likely due to above, avoid neurologically altering agents, monitor. 5. Dementia - r/o acute illness, appears worsening, dispo tbd 6. A fib - chronic, stable, continue home medications 7. Hypertension - chronic, continue home medications DVT Prophylaxis: ASA Review Statement Review Statement: I have personally discussed and reviewed the patient's visit/currently labs/imaging/decision making with Dr. Zeng, my supervising attending. Greater that 50 minutes spent with patient, 50% of the time spent with this patient was devoted to counseling and coordination of care.
[2023-06-08] MEDS: ACETAMINOPHEN 1,000 MG/100 ML BAG IV PRN (14:48)
[2023-06-08] MEDS: MELATONIN PO SCH (20:41)
[2023-06-08] MEDS ORDERED: ATIVAN IVP PRN (22:04)
[2023-06-09] MEDS: SODIUM CHLORIDE 1,000 ML IV SCH ×3 (05:12→20:42)
[2023-06-09 06:17] LABS: BASOPHILS # (AUTO) 0.1 K/uL (0-0.2); BASOPHILS % (AUTO) 0.6 % (0.0-3.0); EOSINOPHILS # (AUTO) 0.1 K/ul (0.0-0.7); EOSINOPHILS % (AUTO) 0.5 % (0.0-7.0); HEMATOCRIT 45.5 % (42.0-52.0); HEMOGLOBIN 15.2 g/dl (14.0-18.0); IMMATURE GRANULOCYTE # (AUTO) 0.1 (0.0-1.0); IMMATURE GRANULOCYTE % (AUTO) 0.5 % (0.0-5.0); LYMPHOCYTES # (AUTO) 1.1 K/uL (0.60-3.4); LYMPHOCYTES % (AUTO) 7.4 (10.0-50.0); MEAN CORPUSCULAR HEMOGLOBIN 32.9 pg (27.0-31.0); MEAN CORPUSCULAR HGB CONC 33.4 (31.8-35.4); MEAN CORPUSCULAR VOLUME 98.5 fl (80.0-94.0); MONOCYTES # (AUTO) 1.7 K/uL (0.4-2.0); MONOCYTES % (AUTO) 11.3 (0-10); NEUTROPHILS # (AUTO) 11.6 K/ul (2.0-6.9); NEUTROPHILS % (AUTO) 79.7 % (42.2-75.2); PLATELET COUNT 237 10^3/uL (140-440); RDW COEFFICIENT OF VARIATION 12.9 % (11.6-14.8); RED BLOOD COUNT 4.62 10^6/ul (4.70-6.10); WHITE BLOOD COUNT 14.54 K/ul (4.2-10.2)
[2023-06-09 06:34] LABS: ALANINE AMINOTRANSFERASE 32.6 U/L (0-50); ALBUMIN 3.8 g/dL (3.5-5.0); ALKALINE PHOSPHATASE 64.4 U/L (56-119); ASPARTATE AMINO TRANSFERASE 43.8 U/L (17-59); BILIRUBIN,TOTAL 0.88 mg/dL (0.2-1.3); CALCIUM 8.22 mg/dL (8.4-10.2); CREATININE 0.82 mg/dL (0.60-1.10); GLUCOSE 80.4 mg/dL (74-106); POTASSIUM 3.32 mmol/L (3.5-5.1); SODIUM 134.9 mmol/L (134.5-145); TOTAL PROTEIN 6.71 g/dL (6.3-8.2)
[2023-06-09] MEDS: ASPIRIN EC PO SCH (08:42)
[2023-06-09] MEDS: NAMENDA PO SCH (08:44)
[2023-06-09] MEDS: FLOMAX PO SCH (08:45)
[2023-06-09] MEDS: CATAPRES PO SCH ×2 (08:46→20:43)
[2023-06-09] MEDS: CARDIZEM CD PO SCH (08:46)
[2023-06-09] MEDS: CALCIUM 500 + VIT D 5 MCG (200 IU) TABLET PO SCH (08:49)
[2023-06-09] MEDS: MULTIVITAMIN TABLET PO SCH (08:49)
[2023-06-09] MEDS: SODIUM CHLORIDE PO SCH ×5 (08:50→20:44)
[2023-06-09] MEDS: ROCEPHIN 1 GM/50 ML D5W 1 GM/50 ML BAG IV SCH (08:50)
--- NOTE | 2023-06-09 09:03 | PCM.PROG ---
Date/Time Seen Date Seen by Provider: 06/09/23 Time Seen by Provider: 08:45 Provider [facility]BR[facility] Chief Complaint Chief Complaint: FEVER; ALTERED MENTAL STATUS Subjective Subjective: Mental status much improved today. Got up to bedside commode last night with x2 assistance. Following commands and answering simple questions. Denies pain. Objective Appearance: Positive No Apparent Distress Chest/Lungs: Positive Symmetrical With Equal Breath Sounds, Clear to Auscultation Bilaterally and Good Air Movement all 4 Lung Davis Heart: Positive RRR and Pulses Normal GI/: Positive Soft, Nontender, Bowel Sounds Normal and No Distention Musculoskeletal: Positive Not Examined Neurological: Positive Sensation Intact, Motor intact, Alert, Disorinted and Other (able to follow basic commands and answer simple questions) Vital Signs Vital Signs: Vital Signs: Last 24 Hours 06/08/23 10:00 06/08/23 11:30 06/08/23 13:00 Temperature 99.1 F 99.9 F Temperature Source Temporal Artery Scan Rectal Pulse Rate 93 81 Respiratory Rate 23 H 16 Blood Pressure 182/84 H 149/78 H Blood Pressure Mean 116 101 Blood Pressure Location Left Arm Left Arm Blood Pressure Position Supine Supine O2 Sat by Pulse Oximetry 95 97 Oxygen Delivery Method Room Air Room Air Telemetry Type Remote Telemetry Telemetry Monitoring Continues Irregular Telemetry Rate (Approximate) 80-90 BPM Telemetry Heart Rate [address] Interval 0.18 EKG QRS Interval 0.08 Telemetry Strip Reading SR w/PVCs 06/08/23 14:00 06/08/23 14:45 06/08/23 18:00 Temperature 99.8 F 102.2 F H 97.4 F L Temperature Source Temporal Artery Scan Rectal Axillary Pulse Rate 93 74 Respiratory Rate 20 19 Blood Pressure 158/82 H 123/60 Blood Pressure Mean 107 81 Blood Pressure Location Left Arm Right Arm Blood Pressure Position Supine Supine O2 Sat by Pulse Oximetry 95 95 Oxygen Delivery Method Room Air Room Air Room Air Telemetry Type Telemetry Monitoring Irregular Telemetry Rate (Approximate) Telemetry Heart Rate EKG CT Interval EKG QRS Interval Telemetry Strip Reading 06/08/23 19:00 06/08/23 19:44 06/08/23 21:00 Temperature 98.1 F Temperature Source Oral Pulse Rate Respiratory Rate 19 Blood Pressure Blood Pressure Mean Blood Pressure Location Blood Pressure Position O2 Sat by Pulse Oximetry Oxygen Delivery Method Room Air Room Air Telemetry Type Remote Telemetry Telemetry Monitoring Continues Irregular Telemetry Rate (Approximate) Telemetry Heart Rate [address] Interval 0.19 EKG QRS Interval 0.07 Telemetry Strip Reading SR 06/08/23 21:15 06/09/23 01:00 06/09/23 02:52 Temperature 98.1 F 97.6 F Temperature Source Temporal Artery Scan Oral Pulse Rate 83 76 Respiratory Rate 19 Blood Pressure Blood Pressure Mean Blood Pressure Location Blood Pressure Position O2 Sat by Pulse Oximetry Oxygen Delivery Method Room Air Room Air Telemetry Type Remote Telemetry Telemetry Monitoring Continues Irregular Telemetry Rate (Approximate) Telemetry Heart Rate [address] Interval 0.20 EKG QRS Interval 0.09 Telemetry Strip Reading SINUS RHYTHM 06/09/23 05:13 06/09/23 06:58 06/09/23 08:00 Temperature 97.4 F L Temperature Source Oral Pulse Rate 88 Respiratory Rate 16 18 Blood Pressure 146/68 H Blood Pressure Mean 94 Blood Pressure Location Left Arm Blood Pressure Position Supine O2 Sat by Pulse Oximetry 95 Oxygen Delivery Method Room Air Room Air Telemetry Type Remote Telemetry Telemetry Monitoring Continues Irregular Telemetry Rate (Approximate) Telemetry Heart Rate [address] Interval 0.17 EKG QRS Interval 0.08 Telemetry Strip Reading NSR Lab Results Lab Results: Lab Results: Last 24 Hours 06/09/23 06/08/23 05:58 10:35 WBC 14.54 H RBC 4.62 L Hgb 15.2 Hct 45.5 MCV 98.5 H MCH 32.9 H MCHC 33.4 RDW Coeff of Vamsi 12.9 Plt Count 237 Immature Gran % (Auto) 0.5 Neut % (Auto) 79.7 H Lymph % (Auto) 7.4 L [place] % (Auto) 11.3 H Eos % (Auto) 0.5 Baso % (Auto) 0.6 Neut # (Auto) 11.6 H Lymph # (Auto) 1.1 [place] # (Auto) 1.7 Eos # (Auto) 0.1 Baso # (Auto) 0.1 Immature Gran # (Auto) 0.1 Sodium 134.9 Potassium 3.32 L Chloride 105.0 Carbon Dioxide 21.0 L Anion Gap 12.22 BUN 14.0 Creatinine 0.82 Estimated GFR (MDRD) 90.00 BUN/Creatinine Ratio 17.07 Glucose 80.4 Calcium 8.22 L Total Bilirubin 0.88 AST 43.8 ALT 32.6 Alkaline Phosphatase 64.4 Total Protein 6.71 Albumin 3.80 Globulin 2.91 Albumin/Globulin Ratio 1.30 Urine Color Yellow Urine Clarity Clear Urine pH 6.0 Ur Specific [place] >=1.030 Urine Protein Negative Urine Glucose (UA) Negative Urine Ketones 3+ H Urine Blood 3+ H Urine Nitrite Negative Urine Bilirubin Negative Urine Urobilinogen 0.2 Ur Leukocyte Esterase Negative Urine Microscopic RBC 50-100 Ur Squamous Epith Cells Not Reportable Additional Comments Additional Comments: I have independently reviewed and interpreted the labs/EKGs/imaging ordered during this hospital stay. I have reviewed outside records that are available in our EMR that pertain to medical stay including imaging/notes/labs from previous visits. Active Medications Active Medications: Medications Generic Name Dose Route Start Last Admin Trade Name Freq PRN Reason Stop Dose Admin Acetaminophen 650 mg 06/06/23 20:41 Acetaminophen 325 Mg Tablet PO Q4H PRN Mild Pain Aspirin 81 mg 06/08/23 09:00 06/09/23 08:42 Aspirin 81 Mg Tablet. PO 81 mg DAILYWM2 SHIRA Administration Budesonide/Formoterol Fumarate 2 puff 06/07/23 09:00 06/08/23 20:41 Budesonide/Formoterol Fumarate 160/4.5 Mcg Inhaler IH Not Given BID SHIRA Calcium/Vitamin D 1 each 06/07/23 09:00 06/09/23 08:49 Calcium Carbonate/Vitamin D3 500 Mg/5 Mcg(200iu) 1 Each Tablet PO 1 each DAILY SHIRA Administration Clonidine 0.4 mg 06/07/23 09:00 06/09/23 08:46 Clonidine Hcl 0.1 Mg Tablet PO 0.4 mg BID SHIRA Administration Diltiazem HCl 240 mg 06/07/23 09:00 06/09/23 08:46 Diltiazem Hcl 120 Mg Cap.Er.24h PO 240 mg DAILY SHIRA Administration Diphenhydramine HCl 25 mg 06/07/23 21:00 Diphenhydramine Hcl 25 Mg Capsule PO BEDTIME SHIRA Hydroxyzine HCl 25 mg 06/07/23 15:32 06/08/23 02:13 Hydroxyzine Hcl 25 Mg/Ml Vial IM 25 mg Q6H PRN Administration Agitation Sodium Chloride 1,000 mls @ 125 mls/hr 06/07/23 08:14 12/08/23 05:12 Sodium Chloride IV 125 mls/hr .Q8H SHIRA Administration Acetaminophen 1,000 mg in 100 mls @ 400 mls/hr 06/07/23 10:23 06/08/23 14:48 Acetaminophen IV 400 mls/hr Q6HR PRN Administration Pain CEFTRIAXONE/D5W 1 GM PREMIX 1 gm in 50 mls @ 100 mls/hr 06/08/23 09:30 06/09/23 08:50 Rocephin 1 Gm/50 Ml D5w IV 06/11/23 09:29 100 mls/hr DAILY SHIRA Administration VANCOMYCIN/WATER FOR INJ (PEG) 1 gm in 200 mls @ 200 mls/hr 06/08/23 11:00 06/08/23 20:24 Vancomycin 1 Gram/200 Ml Premix IV 06/11/23 10:59 200 mls/hr Q12HR SHIRA Administration Lorazepam 0.5 mg 06/08/23 22:04 06/08/23 22:19 Lorazepam Inj 2 Mg/Ml Vial IVP 0.5 mg Q6H PRN Administration Agitation Melatonin 9 mg 06/07/23 21:00 06/08/23 20:41 Melatonin 3 Mg Tablet PO Not Given BEDTIME SHIRA Memantine 5 mg 06/07/23 09:00 06/09/23 08:44 Memantine Hcl 10 Mg Tablet PO 5 mg QAM SHIRA Administration Multivitamins 1 tab 06/07/23 09:00 06/09/23 08:49 Multivitamin 1 Tab PO 1 tab DAILY SHIRA Administration Non-Formulary Medication 35 mg 06/07/23 09:00 06/09/23 05:13 Alendronate PO Not Given WEEKLY FOSAMAX2 SHIRA Prednisone 5 mg 06/08/23 09:00 06/08/23 09:49 Prednisone 5 Mg Tablet PO Not Given DAILYWM2 SHIRA Sodium Chloride 1 gm 06/07/23 09:00 06/09/23 08:50 Sodium Chloride 1 Gm Tablet PO 1 gm QID SHIRA Administration Tamsulosin HCl 0.4 mg 06/07/23 09:00 06/09/23 08:45 Tamsulosin Hcl 0.4 Mg Cap.Er.24h PO 0.4 mg DAILY SHIRA Administration Plan Plan: 1. Obstructive Uropathy secondary to Prostatitis and BPH - Resolved, Eddy catheter placed, I&O, rocephin and vanc 2. Sepsis r/o - continued fever, UA, chest x-ray, covid, flu, RSV negative. unable to complete respiratory panel, rocephin and vanc ordered, blood cultures prelim negative x 1 day 3. Prostatitis - treating with rocephin and vanc, Free PSA negative, total PSA pending 4. Symptomatic Hyponatremia - Resolved, osmolalities pending 5. Acute Metabolic Encephalopathy - Improving, likely due to above, avoid neurologically altering agents, monitor. 6. Dementia - r/o acute illness, appears worsening, dispo tbd 7. A fib - chronic, stable, continue home medications 8. Hypertension - chronic, continue home medications reported patient has had unknown leukocytosis that PCP was monitoring. Discussed patient may need an oncology referral after d/c due to fever and continued leukocytosis with no obvious source of infection. Due to decline in mental status and condition, requesting retirement placement. Facility preference [place]. Plan to d/c after 48 hours of negative blood cultures and antibiotics. DVT Prophylaxis: ASA Review Statement Review Statement: I have personally discussed and reviewed the patient's visit/currently labs/imaging/decision making with Dr. Zeng, my supervising attending. Greater that 50 minutes spent with patient, 50% of the time spent with this patient was devoted to counseling and coordination of care.
[2023-06-09] MEDS: PREDNISONE PO SCH (09:11)
[2023-06-09] MEDS: VANCOMYCIN 1 GRAM/200 ML PREMIX 1 GM/200 ML BAG IV SCH ×2 (10:00→20:41)
[2023-06-09 10:13] LABS: % FREE PROSTATE SPECIFIC AG 29.2 % (.); PROSTATE SPECIFIC AG, FREE 1.87 ng/mL
[2023-06-09] MEDS: SYMBICORT 160-4.5 MCG INHALER IH SCH ×2 (10:18→20:44)
[2023-06-09] MEDS: TYLENOL PO PRN (14:38)
[2023-06-09] MEDS: MELATONIN PO SCH (20:43)
[2023-06-10 05:45] LABS: BASOPHILS # (AUTO) 0.1 K/uL (0-0.2); BASOPHILS % (AUTO) 0.7 % (0.0-3.0); EOSINOPHILS # (AUTO) 0.2 K/ul (0.0-0.7); EOSINOPHILS % (AUTO) 1.9 % (0.0-7.0); HEMATOCRIT 40.2 % (42.0-52.0); HEMOGLOBIN 13.7 g/dl (14.0-18.0); IMMATURE GRANULOCYTE # (AUTO) 0.1 (0.0-1.0); IMMATURE GRANULOCYTE % (AUTO) 0.8 % (0.0-5.0); LYMPHOCYTES # (AUTO) 1.5 K/uL (0.60-3.4); LYMPHOCYTES % (AUTO) 11.9 (10.0-50.0); MEAN CORPUSCULAR HEMOGLOBIN 33.3 pg (27.0-31.0); MEAN CORPUSCULAR HGB CONC 34.1 (31.8-35.4); MEAN CORPUSCULAR VOLUME 97.6 fl (80.0-94.0); MONOCYTES # (AUTO) 1.4 K/uL (0.4-2.0); MONOCYTES % (AUTO) 11.6 (0-10); NEUTROPHILS % (AUTO) 73.1 % (42.2-75.2); PLATELET COUNT 230 10^3/uL (140-440); RDW COEFFICIENT OF VARIATION 13.1 % (11.6-14.8); RED BLOOD COUNT 4.12 10^6/ul (4.70-6.10); WHITE BLOOD COUNT 12.28 K/ul (4.2-10.2)
[2023-06-10 05:59] LABS: ALANINE AMINOTRANSFERASE 30.8 U/L (0-50); ALBUMIN 2.9 g/dL (3.5-5.0); ALKALINE PHOSPHATASE 46.1 U/L (56-119); ASPARTATE AMINO TRANSFERASE 36.7 U/L (17-59); BILIRUBIN,TOTAL 0.58 mg/dL (0.2-1.3); BLOOD UREA NITROGEN 16.9 mg/dL (9-20); CALCIUM 7.58 mg/dL (8.4-10.2); CARBON DIOXIDE 21.4 mmol/L (22-30.0); CREATININE 0.96 mg/dL (0.60-1.10); GLUCOSE 99.1 mg/dL (74-106); POTASSIUM 3.15 mmol/L (3.5-5.1); TOTAL PROTEIN 5.47 g/dL (6.3-8.2)
[2023-06-10] MEDS: SODIUM CHLORIDE 1,000 ML IV SCH (07:00)
[2023-06-10 07:30] LABS: SERUM OSMOLALITY 264 mOsmol/kg (280-301)
[2023-06-10] MEDS: CALCIUM 500 + VIT D 5 MCG (200 IU) TABLET PO SCH (08:15)
[2023-06-10] MEDS: FLOMAX PO SCH (08:15)
[2023-06-10] MEDS: CATAPRES PO SCH ×2 (08:15→20:06)
[2023-06-10] MEDS: CARDIZEM CD PO SCH (08:15)
[2023-06-10] MEDS: SODIUM CHLORIDE PO SCH ×4 (08:16→20:07)
[2023-06-10] MEDS: NAMENDA PO SCH (08:16)
[2023-06-10] MEDS: MULTIVITAMIN TABLET PO SCH (08:16)
[2023-06-10] MEDS: ASPIRIN EC PO SCH (08:18)
[2023-06-10] MEDS: ROCEPHIN 1 GM/50 ML D5W 1 GM/50 ML BAG IV SCH (08:22)
[2023-06-10] MEDS: SYMBICORT 160-4.5 MCG INHALER IH SCH ×2 (08:22→20:09)
[2023-06-10] MEDS: VANCOMYCIN 1 GRAM/200 ML PREMIX 1 GM/200 ML BAG IV SCH ×2 (09:22→20:05)
[2023-06-10] MEDS: TYLENOL PO PRN (09:23)
--- NOTE | 2023-06-10 09:54 | PCM.PROG ---
Date/Time Seen Date Seen by Provider: 06/10/23 Time Seen by Provider: 09:00 Provider Provider: [facility]ISA ALBR[facility] Chief Complaint Chief Complaint: FEVER; ALTERED MENTAL STATUS Subjective Subjective: Afebrile since 06/08 Ate breakfast and fed himself this am. Conversing appropriately with at bedside. Objective Appearance: Positive No Apparent Distress Chest/Lungs: Positive Symmetrical With Equal Breath Sounds, Clear to Auscultation Bilaterally and Good Air Movement all 4 Lung Davis Heart: Positive RRR and Pulses Normal GI/: Positive Soft, Nontender, Bowel Sounds Normal and No Distention Musculoskeletal: Positive Not Examined Neurological: Positive Sensation Intact, Motor intact, Alert, Oriented (to person and place), Disorinted (to time and situation), Muscle Strength 5/5 in Upper and Lower Extremities Bilaterally and Other Vital Signs Vital Signs: Vital Signs: Last 24 Hours 06/09/23 10:00 06/09/23 13:00 06/09/23 14:00 Temperature 99.2 F 99.4 F Temperature Source Temporal Artery Scan Axillary Pulse Rate 86 75 Pulse Rate [Apical] Respiratory Rate 18 18 Blood Pressure 144/75 H 96/50 L Blood Pressure Mean 98 65 Blood Pressure Location Left Arm Left Arm Blood Pressure Position Supine O2 Sat by Pulse Oximetry 95 95 Oxygen Delivery Method Room Air Room Air Telemetry Type Remote Telemetry Telemetry Monitoring Continues Telemetry Heart Rate 73 EKG HI Interval 0.16 EKG QRS Interval 0.05 L Telemetry Strip Reading SR with PVCs 06/09/23 15:50 06/09/23 18:00 06/09/23 19:00 Temperature 97.2 F L 97.6 F Temperature Source Axillary Oral Pulse Rate 77 Pulse Rate [Apical] Respiratory Rate 24 H Blood Pressure 114/58 L Blood Pressure Mean 76 Blood Pressure Location Left Arm Blood Pressure Position O2 Sat by Pulse Oximetry 95 Oxygen Delivery Method Room Air Room Air Telemetry Type Remote Telemetry Telemetry Monitoring Continues Telemetry Heart Rate 72 EKG HI Interval 0.15 EKG QRS Interval 0.06 Telemetry Strip Reading SR 06/09/23 20:00 06/09/23 20:38 06/10/23 01:00 Temperature 98.4 F Temperature Source Oral Pulse Rate 72 Pulse Rate [Apical] Respiratory Rate 18 16 Blood Pressure 124/68 Blood Pressure Mean 86 Blood Pressure Location Left Arm Blood Pressure Position Supine O2 Sat by Pulse Oximetry 96 Oxygen Delivery Method Room Air Room Air Telemetry Type Remote Telemetry Telemetry Monitoring Continues Telemetry Heart Rate 75 EKG HI Interval 0.17 EKG QRS Interval 0.07 Telemetry Strip Reading SR 06/10/23 02:00 06/10/23 05:14 06/10/23 07:00 Temperature 98.1 F 98.1 F Temperature Source Oral Oral Pulse Rate 79 Pulse Rate [Apical] Respiratory Rate 16 Blood Pressure 126/67 Blood Pressure Mean 86 Blood Pressure Location Left Arm Blood Pressure Position Supine O2 Sat by Pulse Oximetry 95 Oxygen Delivery Method Room Air Room Air Telemetry Type Remote Telemetry Telemetry Monitoring Continues Telemetry Heart Rate 81 EKG HI Interval 0.16 EKG QRS Interval 0.08 Telemetry Strip Reading NSR 06/10/23 08:00 Temperature Temperature Source Pulse Rate Pulse Rate [Apical] 100 Respiratory Rate 18 Blood Pressure Blood Pressure Mean Blood Pressure Location Blood Pressure Position O2 Sat by Pulse Oximetry Oxygen Delivery Method Room Air Telemetry Type Telemetry Monitoring Telemetry Heart Rate EKG HI Interval EKG QRS Interval Telemetry Strip Reading Lab Results Lab Results: Lab Results: Last 24 Hours 06/10/23 06/08/23 06/06/23 05:41 06:01 19:00 WBC 12.28 H RBC 4.12 L Hgb 13.7 L Hct 40.2 L MCV 97.6 H MCH 33.3 H MCHC 34.1 RDW Coeff of Vamsi 13.1 Plt Count 230 Immature Gran % (Auto) 0.8 Neut % (Auto) 73.1 Lymph % (Auto) 11.9 [place] % (Auto) 11.6 H Eos % (Auto) 1.9 Baso % (Auto) 0.7 Neut # (Auto) 9.0 H Lymph # (Auto) 1.5 [place] # (Auto) 1.4 Eos # (Auto) 0.2 Baso # (Auto) 0.1 Immature Gran # (Auto) 0.1 Sodium 135.0 Potassium 3.15 L Chloride 109.0 H Carbon Dioxide 21.4 L Anion Gap 7.75 BUN 16.9 Creatinine 0.96 Estimated GFR (MDRD) 75.00 BUN/Creatinine Ratio 17.60 Glucose 99.1 Serum Osmolality 264 L Calcium 7.58 L Total Bilirubin 0.58 AST 36.7 ALT 30.8 Alkaline Phosphatase 46.1 L Total Protein 5.47 L Albumin 2.90 L Globulin 2.57 Albumin/Globulin Ratio 1.12 Free PSA 1.87 % Free PSA Calc 29.2 Additional Comments Additional Comments: I have independently reviewed and interpreted the labs/EKGs/imaging ordered during this hospital stay. I have reviewed outside records that are available in our EMR that pertain to medical stay including imaging/notes/labs from previous visits. Active Medications Active Medications: Medications Generic Name Dose Route Start Last Admin Trade Name Freq PRN Reason Stop Dose Admin Acetaminophen 650 mg 06/06/23 20:41 06/10/23 09:23 Acetaminophen 325 Mg Tablet PO 650 mg Q4H PRN Administration Mild Pain Aspirin 81 mg 06/08/23 09:00 06/10/23 08:18 Aspirin 81 Mg Tablet.Dr PO 81 mg DAILYWM2 SHIRA Administration Budesonide/Formoterol Fumarate 2 puff 06/07/23 09:00 06/10/23 08:22 Budesonide/Formoterol Fumarate 160/4.5 Mcg Inhaler IH 2 puff BID SHIRA Administration Calcium/Vitamin D 1 each 06/07/23 09:00 06/10/23 08:15 Calcium Carbonate/Vitamin D3 500 Mg/5 Mcg(200iu) 1 Each Tablet PO 1 each DAILY SHIRA Administration Clonidine 0.4 mg 06/07/23 09:00 06/10/23 08:15 Clonidine Hcl 0.1 Mg Tablet PO 0.4 mg BID SHIRA Administration Diltiazem HCl 240 mg 06/07/23 09:00 06/10/23 08:15 Diltiazem Hcl 120 Mg Cap.Er.24h PO 240 mg DAILY SHIRA Administration Diphenhydramine HCl 25 mg 06/07/23 21:00 Diphenhydramine Hcl 25 Mg Capsule PO BEDTIME SHIRA Hydroxyzine HCl 25 mg 06/07/23 15:32 06/08/23 02:13 Hydroxyzine Hcl 25 Mg/Ml Vial IM 25 mg Q6H PRN Administration Agitation Acetaminophen 1,000 mg in 100 mls @ 400 mls/hr 06/07/23 10:23 06/08/23 14:48 Acetaminophen IV 400 mls/hr Q6HR PRN Administration Pain CEFTRIAXONE/D5W 1 GM PREMIX 1 gm in 50 mls @ 100 mls/hr 06/08/23 09:30 06/10/23 08:22 Rocephin 1 Gm/50 Ml D5w IV 12/10/23 09:29 100 mls/hr DAILY SHIRA Administration VANCOMYCIN/WATER FOR INJ (PEG) 1 gm in 200 mls @ 200 mls/hr 06/08/23 11:00 06/10/23 09:22 Vancomycin 1 Gram/200 Ml Premix IV 06/11/23 10:59 200 mls/hr Q12HR SHIRA Administration Lorazepam 0.5 mg 06/08/23 22:04 06/08/23 22:19 Lorazepam Inj 2 Mg/Ml Vial IVP 0.5 mg Q6H PRN Administration Agitation Melatonin 9 mg 06/07/23 21:00 06/09/23 20:43 Melatonin 3 Mg Tablet PO Not Given BEDTIME SHIRA Memantine 5 mg 06/07/23 09:00 06/10/23 08:16 Memantine Hcl 10 Mg Tablet PO 5 mg QAM SHIRA Administration Multivitamins 1 tab 06/07/23 09:00 06/10/23 08:16 Multivitamin 1 Tab PO 1 tab DAILY SHIRA Administration Non-Formulary Medication 35 mg 06/07/23 09:00 06/10/23 05:21 Alendronate PO Not Given WEEKLY FOSAMAX2 SHIRA Prednisone 5 mg 06/08/23 09:00 06/09/23 09:11 Prednisone 5 Mg Tablet PO Not Given DAILYWM2 SHIRA Sodium Chloride 1 gm 06/07/23 09:00 06/10/23 08:16 Sodium Chloride 1 Gm Tablet PO 1 gm QID SHIRA Administration Tamsulosin HCl 0.4 mg 06/07/23 09:00 06/10/23 08:15 Tamsulosin Hcl 0.4 Mg Cap.Er.24h PO 0.4 mg DAILY SHIRA Administration Plan Plan: 1. Sepsis r/o - UA, chest x-ray, covid, flu, RSV negative. unable to complete respiratory panel, rocephin and vanc ordered, blood cultures prelim negative, no fever >24 hours 2. Prostatitis - treating with rocephin and vanc - will transition to PO medications tomorrow, Free PSA negative, total PSA pending 3. Symptomatic Hyponatremia - Resolved, serum osmolality low - secondary to dehydration/poor oral intake 4. Acute Metabolic Encephalopathy - Improving, likely due to above, avoid neurologically altering agents, monitor. 5. Dementia - r/o acute illness, appears worsening, dispo tbd 6. Obstructive Uropathy secondary to Prostatitis and BPH - Resolved, Eddy catheter placed, I&O, rocephin and vanc 7. A fib - chronic, stable, continue home medications 8. Hypertension - chronic, continue home medications Due to decline in mental status and condition, requesting detention placement. Facility preference [place]. However, patient mental status improving to near baseline today. Interested in swingbed program. Will have PT/OT eval on Monday for possible swingbed admission vs detention placement DVT Prophylaxis: ASA Review Statement Review Statement: I have personally discussed and reviewed the patient's visit/currently labs/imaging/decision making with Dr. Zeng, my supervising attending. Greater that 50 minutes spent with patient, 50% of the time spent with this patient was devoted to counseling and coordination of care.
[2023-06-10] MEDS: MELATONIN PO SCH (20:07)
[2023-06-10] MEDS ORDERED: POTASSIUM CHL 10% ORAL SOL PO ONE (20:25)
[2023-06-11] MEDS: CARDIZEM CD PO SCH (08:30)
[2023-06-11] MEDS: CATAPRES PO SCH ×2 (08:30→21:11)
[2023-06-11] MEDS: CALCIUM 500 + VIT D 5 MCG (200 IU) TABLET PO SCH (08:31)
[2023-06-11] MEDS: SODIUM CHLORIDE PO SCH ×2 (08:31→13:48)
[2023-06-11] MEDS: NAMENDA PO SCH (08:31)
[2023-06-11] MEDS: ASPIRIN EC PO SCH (08:31)
[2023-06-11] MEDS: MULTIVITAMIN TABLET PO SCH (08:31)
[2023-06-11] MEDS: SYMBICORT 160-4.5 MCG INHALER IH SCH ×2 (08:31→21:12)
[2023-06-11] MEDS: FLOMAX PO SCH (08:31)
[2023-06-11] MEDS: ROCEPHIN 1 GM/50 ML D5W 1 GM/50 ML BAG IV SCH (08:32)
[2023-06-11 08:39] LABS: BASOPHILS # (AUTO) 0.1 K/uL (0-0.2); BASOPHILS % (AUTO) 0.7 % (0.0-3.0); EOSINOPHILS # (AUTO) 0.2 K/ul (0.0-0.7); EOSINOPHILS % (AUTO) 1.4 % (0.0-7.0); HEMATOCRIT 41.6 % (42.0-52.0); HEMOGLOBIN 13.9 g/dl (14.0-18.0); IMMATURE GRANULOCYTE # (AUTO) 0.1 (0.0-1.0); IMMATURE GRANULOCYTE % (AUTO) 0.6 % (0.0-5.0); LYMPHOCYTES # (AUTO) 1.1 K/uL (0.60-3.4); LYMPHOCYTES % (AUTO) 8.6 (10.0-50.0); MEAN CORPUSCULAR HEMOGLOBIN 32.9 pg (27.0-31.0); MEAN CORPUSCULAR HGB CONC 33.4 (31.8-35.4); MEAN CORPUSCULAR VOLUME 98.6 fl (80.0-94.0); MONOCYTES # (AUTO) 1.3 K/uL (0.4-2.0); MONOCYTES % (AUTO) 9.5 (0-10); NEUTROPHILS # (AUTO) 10.5 K/ul (2.0-6.9); NEUTROPHILS % (AUTO) 79.2 % (42.2-75.2); PLATELET COUNT 234 10^3/uL (140-440); RDW COEFFICIENT OF VARIATION 13.2 % (11.6-14.8); RED BLOOD COUNT 4.22 10^6/ul (4.70-6.10); WHITE BLOOD COUNT 13.21 K/ul (4.2-10.2)
[2023-06-11 08:44] LABS: ALBUMIN 3.45 g/dL (3.5-5.0); ALKALINE PHOSPHATASE 56.9 U/L (56-119); ASPARTATE AMINO TRANSFERASE 33.4 U/L (17-59); BILIRUBIN,TOTAL 0.62 mg/dL (0.2-1.3); CALCIUM 8.42 mg/dL (8.4-10.2); CARBON DIOXIDE 20.9 mmol/L (22-30.0); CHLORIDE 109.5 mmol/L (98-107); CREATININE 0.86 mg/dL (0.60-1.10); GLUCOSE 112.7 mg/dL (74-106); POTASSIUM 3.6 mmol/L (3.5-5.1); TOTAL PROTEIN 6.31 g/dL (6.3-8.2)
[2023-06-11] MEDS: VANCOMYCIN 1 GRAM/200 ML PREMIX 1 GM/200 ML BAG IV SCH (09:20)
--- NOTE | 2023-06-11 09:23 | PCM.PROG ---
Date/Time Seen Date Seen by Provider: 06/11/23 Time Seen by Provider: 09:00 Provider Provider: LISA ALBRIGHT, [facility] Chief Complaint Chief Complaint: FEVER; ALTERED MENTAL STATUS Subjective Subjective: No fever or agitation over night. Oriented to person and place. No complaints at this time. Objective Appearance: Positive No Apparent Distress Chest/Lungs: Positive Symmetrical With Equal Breath Sounds, Clear to Auscultation Bilaterally and Good Air Movement all 4 Lung Davis Heart: Positive RRR and Pulses Normal GI/: Positive Soft, Nontender, Bowel Sounds Normal and No Distention Musculoskeletal: Positive Not Examined Neurological: Positive Sensation Intact, Motor intact, Reflexes Intact, Alert, Oriented (to person and place) and Disorinted (to time and situation) Vital Signs Vital Signs: Vital Signs: Last 24 Hours 06/10/23 10:00 06/10/23 13:00 06/10/23 14:00 Temperature 98.3 F 97.5 F L Temperature Source Oral Temporal Artery Scan Pulse Rate 88 70 Pulse Rate [Apical] Respiratory Rate 20 24 H Blood Pressure 117/63 90/51 L Blood Pressure Mean 81 64 Blood Pressure Location Left Arm Left Arm Blood Pressure Position Supine Supine O2 Sat by Pulse Oximetry 94 L 97 Oxygen Delivery Method Room Air Room Air Telemetry Type Remote Telemetry Telemetry Monitoring Continues Telemetry Heart Rate 73 EKG MA Interval 0.16 EKG QRS Interval 0.06 Telemetry Strip Reading NSR 06/10/23 17:59 06/10/23 18:56 06/10/23 19:51 Temperature 98.3 F Temperature Source Temporal Artery Scan Pulse Rate 83 Pulse Rate [Apical] Respiratory Rate 26 H 16 Blood Pressure 106/52 L Blood Pressure Mean 70 Blood Pressure Location Left Arm Blood Pressure Position Supine O2 Sat by Pulse Oximetry 98 Oxygen Delivery Method Room Air Room Air Telemetry Type Remote Telemetry Telemetry Monitoring Continues Telemetry Heart Rate 71 EKG MA Interval 0.15 EKG QRS Interval 0.09 Telemetry Strip Reading Sinus Rhythm 06/10/23 20:56 06/11/23 01:00 06/11/23 05:52 Temperature 97.6 F 98.2 F Temperature Source Temporal Artery Scan Temporal Artery Scan Pulse Rate 63 76 Pulse Rate [Apical] Respiratory Rate 23 H 21 H Blood Pressure 126/69 131/76 Blood Pressure Mean 88 94 Blood Pressure Location Right Arm Left Arm Blood Pressure Position Supine Supine O2 Sat by Pulse Oximetry 96 97 Oxygen Delivery Method Room Air Room Air Telemetry Type Remote Telemetry Telemetry Monitoring Continues Telemetry Heart Rate 65 EKG MA Interval 0.20 EKG QRS Interval 0.07 Telemetry Strip Reading NSR 06/11/23 07:00 06/11/23 08:00 Temperature Temperature Source Pulse Rate Pulse Rate [Apical] 78 Respiratory Rate 18 Blood Pressure Blood Pressure Mean Blood Pressure Location Blood Pressure Position O2 Sat by Pulse Oximetry Oxygen Delivery Method Room Air Telemetry Type Remote Telemetry Telemetry Monitoring Continues Telemetry Heart Rate 79 EKG MA Interval 0.16 EKG QRS Interval 0.08 Telemetry Strip Reading SR Lab Results Lab Results: Lab Results: Last 24 Hours 06/11/23 08:23 WBC 13.21 H RBC 4.22 L Hgb 13.9 L Hct 41.6 L MCV 98.6 H MCH 32.9 H MCHC 33.4 RDW Coeff of Vamsi 13.2 Plt Count 234 Immature Gran % (Auto) 0.6 Neut % (Auto) 79.2 H Lymph % (Auto) 8.6 L [place] % (Auto) 9.5 Eos % (Auto) 1.4 Baso % (Auto) 0.7 Neut # (Auto) 10.5 H Lymph # (Auto) 1.1 [place] # (Auto) 1.3 Eos # (Auto) 0.2 Baso # (Auto) 0.1 Immature Gran # (Auto) 0.1 Sodium 137.0 Potassium 3.60 Chloride 109.5 H Carbon Dioxide 20.9 L Anion Gap 10.20 BUN 15.0 Creatinine 0.86 Estimated GFR (MDRD) 85.00 BUN/Creatinine Ratio 17.44 Glucose 112.7 H Calcium 8.42 Total Bilirubin 0.62 AST 33.4 ALT 40.0 Alkaline Phosphatase 56.9 Total Protein 6.31 Albumin 3.45 L Globulin 2.86 Albumin/Globulin Ratio 1.20 Vancomycin Trough 12.582 Additional Comments Additional Comments: I have independently reviewed and interpreted the labs/EKGs/imaging ordered during this hospital stay. I have reviewed outside records that are available in our EMR that pertain to medical stay including imaging/notes/labs from previous visits. Active Medications Active Medications: Medications Generic Name Dose Route Start Last Admin Trade Name Freq PRN Reason Stop Dose Admin Acetaminophen 650 mg 06/06/23 20:41 06/10/23 09:23 Acetaminophen 325 Mg Tablet PO 650 mg Q4H PRN Administration Mild Pain Aspirin 81 mg 06/08/23 09:00 06/11/23 08:31 Aspirin 81 Mg Tablet.Dr PO 81 mg DAILYWM2 SHIRA Administration Budesonide/Formoterol Fumarate 2 puff 06/07/23 09:00 06/11/23 08:31 Budesonide/Formoterol Fumarate 160/4.5 Mcg Inhaler IH 2 puff BID SHIRA Administration Calcium/Vitamin D 1 each 06/07/23 09:00 06/11/23 08:31 Calcium Carbonate/Vitamin D3 500 Mg/5 Mcg(200iu) 1 Each Tablet PO 1 each DAILY SHIRA Administration Cephalexin 500 mg 06/11/23 21:00 Cephalexin 500 Mg Capsule PO 06/16/23 20:59 Q12HR SHIRA Clonidine 0.4 mg 06/07/23 09:00 06/11/23 08:30 Clonidine Hcl 0.1 Mg Tablet PO 0.4 mg BID SHIRA Administration Diltiazem HCl 240 mg 06/07/23 09:00 06/11/23 08:30 Diltiazem Hcl 120 Mg Cap.Er.24h PO 240 mg DAILY SHIRA Administration Diphenhydramine HCl 25 mg 06/07/23 21:00 Diphenhydramine Hcl 25 Mg Capsule PO BEDTIME SHIRA Hydroxyzine HCl 25 mg 06/07/23 15:32 06/08/23 02:13 Hydroxyzine Hcl 25 Mg/Ml Vial IM 25 mg Q6H PRN Administration Agitation Acetaminophen 1,000 mg in 100 mls @ 400 mls/hr 06/07/23 10:23 06/08/23 14:48 Acetaminophen IV 400 mls/hr Q6HR PRN Administration Pain Lorazepam 0.5 mg 06/08/23 22:04 06/08/23 22:19 Lorazepam Inj 2 Mg/Ml Vial IVP 0.5 mg Q6H PRN Administration Agitation Melatonin 9 mg 06/07/23 21:00 06/10/23 20:07 Melatonin 3 Mg Tablet PO 9 mg BEDTIME SHIRA Administration Memantine 5 mg 06/07/23 09:00 06/11/23 08:31 Memantine Hcl 10 Mg Tablet PO 5 mg QAM SHIRA Administration Multivitamins 1 tab 06/07/23 09:00 06/11/23 08:31 Multivitamin 1 Tab PO 1 tab DAILY SHIRA Administration Non-Formulary Medication 35 mg 06/07/23 09:00 06/11/23 05:34 Alendronate PO Not Given WEEKLY FOSAMAX2 SHIRA Prednisone 5 mg 06/08/23 09:00 06/09/23 09:11 Prednisone 5 Mg Tablet PO Not Given DAILYWM2 SHIRA Sodium Chloride 1 gm 06/07/23 09:00 06/11/23 08:31 Sodium Chloride 1 Gm Tablet PO 1 gm QID SHIRA Administration Sodium Chloride 1 syr 06/10/23 21:00 06/11/23 05:33 0.9% Sodium Chloride 10 Ml Disp.Syrin IVF 1 syr Q8HR SHIRA Administration Tamsulosin HCl 0.4 mg 06/07/23 09:00 06/11/23 08:31 Tamsulosin Hcl 0.4 Mg Cap.Er.24h PO 0.4 mg DAILY SHIRA Administration Plan Plan: 1. Sepsis r/o - UA, chest x-ray, covid, flu, RSV negative. unable to complete respiratory panel, rocephin and vanc ordered, blood cultures negative, no fever >24 hours 2. Prostatitis - transition to PO Keflex today, Free PSA negative, total PSA pending 3. Symptomatic Hyponatremia - Resolved, serum osmolality low - secondary to dehydration/poor oral intake 4. Acute Metabolic Encephalopathy - Resolved - at baseline, likely due to above, avoid neurologically altering agents, monitor. 5. Dementia - r/o acute illness, appears worsening, dispo tbd 6. Obstructive Uropathy secondary to Prostatitis and BPH - Resolved, Eddy catheter placed, I&O 7. A fib - chronic, stable, continue home medications 8. Hypertension - chronic, continue home medications 9. Leukocytosis - concern for malignancy, nodules on chest CT, discussed extensively with and daughter need for further work-up. Due to decline in mental status and condition, requesting alf placement. Facility preference [facility]. Patient mental status improving to near baseline today. Interested in swingbed program. Will have PT/OT eval on Monday for possible swingbed admission vs alf placement DVT Prophylaxis: ASA Review Statement Review Statement: I have personally discussed and reviewed the patient's visit/currently labs/imaging/decision making with Dr. Zeng, my supervising attending. Greater that 50 minutes spent with patient, 50% of the time spent with this patient was devoted to counseling and coordination of care.
[2023-06-11] MEDS ORDERED: MAXIPIME 2 GM/50 ML D5W 2 GM/50 ML BAG IV ONE (11:00)
[2023-06-11] MEDS ORDERED: NORCO 5-325 PO PRN (11:09)
[2023-06-11 18:11] LABS: OSMOLALITY,URINE 934 mOsmol/kg (.)
[2023-06-11] MEDS ORDERED: MAXIPIME 2 GM/50 ML D5W 2 GM/50 ML BAG IV SCH (21:00)
[2023-06-11] MEDS ORDERED: KEFLEX PO SCH (21:00)
[2023-06-11] MEDS: MELATONIN PO SCH (21:11)
[2023-06-12 05:07] LABS: BASOPHILS # (AUTO) 0.1 K/uL (0-0.2); BASOPHILS % (AUTO) 0.6 % (0.0-3.0); EOSINOPHILS # (AUTO) 0.2 K/ul (0.0-0.7); EOSINOPHILS % (AUTO) 1.3 % (0.0-7.0); HEMATOCRIT 39.4 % (42.0-52.0); HEMOGLOBIN 12.9 g/dl (14.0-18.0); IMMATURE GRANULOCYTE # (AUTO) 0.1 (0.0-1.0); IMMATURE GRANULOCYTE % (AUTO) 0.4 % (0.0-5.0); LYMPHOCYTES # (AUTO) 1.1 K/uL (0.60-3.4); LYMPHOCYTES % (AUTO) 8.7 (10.0-50.0); MEAN CORPUSCULAR HEMOGLOBIN 32.6 pg (27.0-31.0); MEAN CORPUSCULAR HGB CONC 32.7 (31.8-35.4); MEAN CORPUSCULAR VOLUME 99.5 fl (80.0-94.0); MONOCYTES # (AUTO) 1.4 K/uL (0.4-2.0); MONOCYTES % (AUTO) 11.1 (0-10); NEUTROPHILS # (AUTO) 9.9 K/ul (2.0-6.9); NEUTROPHILS % (AUTO) 77.9 % (42.2-75.2); PLATELET COUNT 235 10^3/uL (140-440); RDW COEFFICIENT OF VARIATION 13.2 % (11.6-14.8); RED BLOOD COUNT 3.96 10^6/ul (4.70-6.10); WHITE BLOOD COUNT 12.71 K/ul (4.2-10.2)
[2023-06-12 05:25] LABS: ALANINE AMINOTRANSFERASE 45.7 U/L (0-50); ALBUMIN 3.2 g/dL (3.5-5.0); ALKALINE PHOSPHATASE 51.5 U/L (56-119); ASPARTATE AMINO TRANSFERASE 38.9 U/L (17-59); BILIRUBIN,TOTAL 0.52 mg/dL (0.2-1.3); BLOOD UREA NITROGEN 14.6 mg/dL (9-20); CALCIUM 8.64 mg/dL (8.4-10.2); CARBON DIOXIDE 22.7 mmol/L (22-30.0); CHLORIDE 108.1 mmol/L (98-107); CREATININE 0.83 mg/dL (0.60-1.10); GLUCOSE 117.6 mg/dL (74-106); POTASSIUM 3.61 mmol/L (3.5-5.1); SODIUM 135.9 mmol/L (134.5-145); TOTAL PROTEIN 5.91 g/dL (6.3-8.2)
[2023-06-12] MEDS ORDERED: LEVAQUIN PO SCH (06:00)
[2023-06-12] MEDS: SYMBICORT 160-4.5 MCG INHALER IH SCH (08:14)
[2023-06-12] MEDS: ASPIRIN EC PO SCH (08:15)
[2023-06-12] MEDS: CALCIUM 500 + VIT D 5 MCG (200 IU) TABLET PO SCH (08:15)
[2023-06-12] MEDS: NAMENDA PO SCH (08:15)
[2023-06-12] MEDS: CATAPRES PO SCH (08:16)
[2023-06-12] MEDS: MULTIVITAMIN TABLET PO SCH (08:16)
[2023-06-12] MEDS: CARDIZEM CD PO SCH (08:17)
[2023-06-12] MEDS: FLOMAX PO SCH (08:17)
[2023-06-12 09:55] VITALS: BP 122/69; PULSE 69; RESP 20; TEMP 98.1
--- NOTE | 2023-06-12 11:55 | RS.PTINEVL ---
Subjective Patient information Date of Evaluation: 06/12/23 Date of Arrival on Unit: 06/06/23 Admitted From:: Home Diagnosis: sepsis, acute metabolic encephalopathy Usual Living Arrangement: With Spouse Living Arrangement Comments: Private home Home Environment: House, Stairs (few) (2 steps w 1 handrail) and Rail Medical History: Hypertension Medical History Comments:: Afib, dementia LATEX ALLERGY?: No Medications: see chart Subjective Information/ Patient Comments:: pt states that he doesn't remember how he got here. reports pt is much clearer today and mental status is closer to baseline. Level of function Prior to this admission, the patient could do the following:: Independent Selfcare, Independent ADL's, Independent Ambulation, Perform Senior Storage Engineer/Cooking, Drive and Participated in Social Activities Outside home Abilities prior to this admission: pt was active and playing golf. pt was attending outpatient PT for low back pain. Current Level of Function: Partially Dependent Current Equipment Used at Home: None Pain Assessement Location bilateral knees: Description: Sharp and Aching Pain Behavior: Guarding and Rubbing Site Pain Aggravating Factors: Changing Position, Exercise/Activity and Standing Pain Alleviating Factors: Medication Interventions Objective Patient Orientation: Person Current Interventions: IV's, Telemetry and Eddy Catheter Observation: min edema B knees R >L, bruising noted to L UE Range of Motion ROM Right Upper Extremity AROM: WFL's Left Upper Extremity AROM: WFL's Right Lower Extremity AROM: Slight limitation (limitation with knee flex due to pain. otherwise WFl's ) Left Lower Extremity AROM: Slight limitation (limitation with knee flex due to pain. otherwise WFl's ) Muscle Strength Muscle Strength Right Upper Extremity: Mild Weakness (grossly 4/5 ) Left Upper Extremity: Mild Weakness (grossly 4/5) Right Lower Extremity: Mild Weakness (hip flex 4-/5, knee flex 4-/5, ext 4/5, ankle DF/PF 4/5 ) Left Lower Extremity: Mild Weakness (hip flex 4-/5, knee flex 4-/5, ext 4/5, ankle DF/PF 4/5 ) Sensation Sensation Right Upper Extremity: Intact/Normal Left Upper Extremity: Intact/Normal Right Lower Extremity: Intact/Normal Left Lower Extremity: Intact/Normal Palpation Palpation Findings: Tenderness (B knees ) and Muscle Guarding Balance Sitting Balance and Reactions Static Sitting Balance: Fair Dynamic Sitting Balance: Poor Standing Balance and Reactions Static Standing Balance: Poor Dynamic Standing Balance: Poor Standing Equilibrium Reactions: Delayed Left and Delayed Right Standing Protective Reactions: Delayed Left and Delayed Right Comments Balance Assessment Comments: pt able to sit at side of bed without challenges SBA. Functional Mobility Bed Mobility Rolling R/L: Min Assist and 1 person assist Supine to Sit: Min Assist and 1 person assist Transfers Sit to Stand: Mod Assist and 2 person assist Stand to Sit: Mod Assist and 1 person assist Safety Awareness Safety Awareness: Poor MICHAEL INDEX SCORE: n/a Ambulation Ambulation Weight Bearing Status: WBAT Assistive Device Used: Rolling Walker Orthotic/Prosthetic Device: No Distance: 10ft Assistance needed with Ambulation: Min Assist and 2 person assist Gait Deviations: Step-to gait, Forward posture and Short stride Ambulation Comments: pt with difficulty clearing floor with LLE. Factors Affecting Ambulation: Decreased Balance, Weakness, Decreased Coordination, Decreased ROM, Decreased Safety, Cognitive Status and Limited Endurance Treatment time Time with patient Length of Evaluation: 19 Total treatment time: 31 Patient Education Education Patient Education: Activity Modification and Education of Plan of Care Teaching Recipient: Patient and Family Teaching Methods: Discussion Comments: discussion regarding POC and home safety Assessment Assessment Problem List:: Decreased level of function, Requires training/education, Decreased safety/Risk of falls, Weakness, Pain limits previous level of function and Cognitive status limits abilities Rehab Potential: Fair Further Therapy Indicated?: No Candidate for Swing Bed for Therapy Services?: Feel pt may be a candidate for swing bed for therapy to improve gait safety. Evaluation Complexity: HISTORY: Medium, EXAM OF BODY SYSTEMS: Medium, CLINICAL PRESENTATION: Medium and CLINICAL DECISION MAKING: Medium Patient's Goal(s): to return home with Short Term Goals GOAL #1: pt demonstrate rolling/scooting w bedrails independently. Goal to be met by: 06/19/23 GOAL #2: Transfer sup to/from sit min to CGA x 1 Goal to be met by: 06/19/23 GOAL #3: Transfer sit to/from stand min x 1 Goal to be met by: 06/19/23 GOAL #4: pt amb with rwx 100ft with min x 1 Goal to be met by: 06/19/23 GOAL #5: Improve BLE strength 4 to 4+/5 Goal to be met by: 06/19/23 Valve Steamer Goals GOAL #1: Transfer sup to/from sit to/from stand SBA Goal to be met by: 06/26/23 GOAL #2: pt amb with rwx functional household distances with SBA to independent Goal to be met by: 06/26/23 GOAL #3: Ascend/descend 2 steps w/ w/o handrail with CGA Goal to be met by: 06/26/23 Plan Plan of Care: Therapeutic EX, Neuromuscular Re-Educ, Therapeutic Activity and Self-Care/Home Management Other:: gait training Frequency of Treatment: 1-2 X day, as tolerated Duration of Treatment: 2 Weeks Anticipated Discharge Destination: Home Treatment Diagnosis (ICD 10 Codes): impaired balance R 26.81 difficulty walking R 26.2 weakness M62.81 Has the Physician been added for Co-signature?: Yes
--- NOTE | 2023-06-12 12:03 | DCSUM ---
Admission Date Admission Date: 06/06/23 Discharge Date Discharge Date: 06/12/23 Admission Diagnosis Admission Diagnosis: 1. Symptomatic Hyponatremia 2. Fever, unknown origin 3. Acute Metabolic Encephalopathy Discharge Diagnosis Discharge Diagnosis: 1. Sepsis r/o - ruled out 2. Prostatitis - transition to PO abx 3. Symptomatic Hyponatremia - Resolved 4. Acute Metabolic Encephalopathy - Resolved - 5. Dementia 6. Obstructive Uropathy secondary to Prostatitis and BPH - Resolved, Fernandez catheter placed 7. A fib - chronic, stable, continue home medications 8. Hypertension - chronic, continue home medications Hospital Provider Hospital Provider: AJAY BASSETT PA-C, [facility] Primary Care Physician Primary Care Physician: JOHN VANEGAS Summary of History and Physical Summary of History and Physical: 83 yo male presented to the ER with confusion and fever. Patient has pmh of dementia and is unable to provide HPI. reports that he has had mild dementia of memory loss including disorientation of place and time. However, he is normally able to carry on ADLs with minimal assistance. Since Monday, patient has not been able to carry out ADLs, increasing confusion and impulsiveness, and fever. Had complaints of headache but no other symptoms prior. Had a fever at home as high as 102. All testing in ER negative. Has not had fever since admission, but has continued to be confused. Sodium this am was found to be 128 despite IV fluids overnight. Patient is not on any medications to lower sodium, and has not been eating or drinking. Hospital Course Subjective: Hyponatremia resolved. Patient was treated with rocephin and vancomycin. UA, CXR, covid, flu, rsv were all negative. Blood cultures negative. Pt did have urinary retention requiring fernandez placement. Rectal exam performed by previous hospitalist. Suspected prostatitis. He was continued on antibiotics. His mentation improved and is now at baseline. He is weak but working with gantto. Initially the plan was to go to detention but with his great improvement over the weekend, would like to try swingbed. PT/OT evaluated patient and agree to swingbed program. Discharged to swingbed. Will cont on levaquin. Will leave fernandez until outpt urology follow up as it was difficult to place due to his BPH. Of note patient does have nodules on ct chest and this needs to be further evaluated outpatient. Appearance: Pleasant, No Apparent Distress and Alert HEENT: MMM CVS: No Murmur Abdomen: Soft, Non-Tender and No Distention Respiratory: No Dyspnea Extremities: No Edema Vital Signs: Most Recent Vital Signs Temperature 98.1 F 06/12/23 09:54 Temperature Source Tympanic 06/12/23 09:54 Temperature Source Oral 06/06/23 13:50 Pulse Rate 69 06/12/23 09:54 Respiratory Rate 20 06/12/23 09:54 Blood Pressure 122/69 06/12/23 09:54 Blood Pressure Mean 86 06/12/23 09:54 Blood Pressure Left Arm 171/84 06/06/23 21:56 Blood Pressure Location Left Arm 06/12/23 09:54 Blood Pressure Position Sitting 06/12/23 09:54 O2 Sat by Pulse Oximetry 95 06/12/23 09:54 Oxygen Delivery Method Room Air 06/12/23 09:54 Height 6 ft 06/06/23 21:56 Weight 210 lb 06/06/23 21:56 Telemetry Type Remote Telemetry 06/12/23 07:00 Telemetry Monitoring Continues 06/12/23 07:00 Irregular Telemetry Rate (Approximate) 80-90 BPM 06/08/23 13:00 Telemetry Heart Rate 64 06/12/23 07:00 EKG WA Interval 0.17 06/12/23 07:00 EKG QRS Interval 0.08 06/12/23 07:00 Telemetry Strip Reading NSR 06/12/23 07:00 Imaging: COMPARISON: CT head 03/01/2020. FINDINGS: No evidence of acute infarction, hemorrhage, or mass. Enlarged perivascular spaces in the basal ganglia. Mild brain volume loss. Mild nonspecific white matter hypodensities, likely chronic small vessel changes. No brain herniation. Patent basilar cisterns. Ventricles are proportional to brain volume. No acute osseous abnormality. Bilateral lens replacements of the globes. Mild atherosclerotic calcifications of the carotid siphons and vertebral arteries. IMPRESSION: No acute intracranial abnormality. Senescent changes. EXAM: CHEST RADIOGRAPH FINDINGS: The heart and mediastinum are normal. The lungs and pleural spaces are stable. No acute abnormality of the bones or soft tissues is identified. IMPRESSION: No evidence of acute disease. EXAM: CT OF THE CHEST WITHOUT CONTRAST History: Short of breath Comparison: Chest radiograph 06/06/2023 Technique: Multiplanar CT images through the thorax were obtained without the administration of IV contrast FINDINGS: Heart size is normal. Trace pericardial fluid. Coronary calcifications. No thoracic aortic aneurysm. No intrathoracic lymphadenopathy. Benign calcified granulomas are seen within the thorax. No consolidation within the lungs. No pleural fluid and no pneumothorax. A few tiny the 3-4 mm nodules are seen within the left lung. No suspicious lung masses or lung nodules. Within the visualized upper abdomen, no grossly acute findings. The gallbladder is mildly distended. No acute osseous abnormalities. Impression: 1. No acute intrathoracic process. 2. Coronary artery disease 3. Small benign appearing nodules within the left lung most likely an infectious or inflammatory etiology Lab Results Last 24 Hours: 06/12/23 06/06/23 05:02 19:00 WBC 12.71 H RBC 3.96 L Hgb 12.9 L Hct 39.4 L MCV 99.5 H MCH 32.6 H MCHC 32.7 RDW Coeff of Vamsi 13.2 Plt Count 235 Immature Gran % (Auto) 0.4 Neut % (Auto) 77.9 H Lymph % (Auto) 8.7 L [place] % (Auto) 11.1 H Eos % (Auto) 1.3 Baso % (Auto) 0.6 Neut # (Auto) 9.9 H Lymph # (Auto) 1.1 [place] # (Auto) 1.4 Eos # (Auto) 0.2 Baso # (Auto) 0.1 Immature Gran # (Auto) 0.1 Sodium 135.9 Potassium 3.61 Chloride 108.1 H Carbon Dioxide 22.7 Anion Gap 8.71 BUN 14.6 Creatinine 0.83 Estimated GFR (MDRD) 89.00 BUN/Creatinine Ratio 17.59 Glucose 117.6 H Calcium 8.64 Total Bilirubin 0.52 AST 38.9 ALT 45.7 Alkaline Phosphatase 51.5 L Total Protein 5.91 L Albumin 3.20 L Globulin 2.71 Albumin/Globulin Ratio 1.18 Urine Osmolality 934 Discharge Instructions Discharge Planning: Discharge Planning > 70 minutes Discharge to [facility] Discussed with Dr. Ana Zeng. Discharge Medications: Medications at Discharge (Home Meds & RX) clonidine HCl 0.1 mg tablet 0.1 mg PO BID 02/03/20 diltiazem HCl 240 mg capsule,24 hr,extended release 240 mg PO DAILY 02/03/20 prednisone 5 mg tablet 5 mg PO DAILY 02/03/20 tamsulosin 0.4 mg capsule 0.4 mg PO DAILY 02/03/20 memantine 10 mg tablet (Namenda) 10 mg PO BID 12/27/20 albuterol sulfate 90 mcg/actuation aerosol inhaler (Ventolin HFA) 1 inh in halation Q6H PRN shortness of breath or wheezing 06/06/23 alendronate 35 mg tablet 35 mg PO WEEKLY 06/06/23 aspirin 81 mg tablet,delayed release (Adult Low Dose Aspirin) 81 mg PO DAILY 06/06/23 calcium carbonate 500 mg calcium (1,250 mg) tablet 500 mg PO DAILY 06/06/23 diphenhydramine HCl 25 mg capsule (Benadryl) 25 mg PO BEDTIME 06/06/23 fluticasone furoate 200 mcg-vilanterol 25 mcg/dose inhalation powder (Breo Ellipta) 1 inh inhalation DAILY 06/06/23 hydrocodone 5 mg-acetaminophen 325 mg tablet 1 tab PO Q6H PRN pain 06/06/23 levothyroxine 200 mcg tablet 200 mcg PO ONCE 06/06/23 melatonin 10 mg capsule 10 mg PO BEDTIME 06/06/23 multivitamin (Daily Multi-Vitamin tablet) 1 tab PO DAILY 06/06/23 fluticasone furoate 200 mcg-vilanterol 25 mcg/dose inhalation powder (Breo Ellipta) 1 inh inhalation DAILY 06/12/23 Discharge Plan Discharge Discharge Orders: Discharge Patient (ONCE); Ordered 06/12/23 Ordered By: AJAY BASSETT Activity Restrictions/Additional Instructions: DISCHARGE TO SWING Patient Disposition: DISCH W/I HOSP TO SWING BD Prescriptions: No Action clonidine HCl 0.1 mg Tablet 0.1 mg PO BID prednisone 5 mg Tablet 5 mg PO DAILY Rx Instructions: as needed diltiazem HCl 240 mg Capsule,Extended Release 24 Hr 240 mg PO DAILY tamsulosin 0.4 mg Capsule 0.4 mg PO DAILY memantine [Namenda] 10 mg Tablet 10 mg PO BID levothyroxine 200 mcg tablet 200 mcg PO DAILY albuterol sulfate [Ventolin HFA] 90 mcg/actuation HFA aerosol inhaler 1 inh INHALATION Q6H PRN (Reason: shortness of breath or wheezing) hydrocodone-acetaminophen 5-325 mg tablet 1 tab PO Q6H PRN (Reason: pain) Rx Instructions: alendronate 35 mg tablet 35 mg PO WEEKLY fluticasone furoate-vilanterol [Breo Ellipta] 200-25 mcg/dose blister with device 1 inh inhalation DAILY calcium carbonate 500 mg calcium (1,250 mg) tablet 500 mg PO DAILY melatonin 10 mg capsule 10 mg PO BEDTIME aspirin [Adult Low Dose Aspirin] 81 mg tablet,delayed release (DR/EC) 81 mg PO DAILY diphenhydramine HCl [Benadryl] 25 mg capsule 25 mg PO BEDTIME multivitamin [Daily Multi-Vitamin] Tablet 1 tab PO DAILY Did you review [place] [employer] TECHNICIAN for ALL controlled substances?: Not Applicable Discussed opioids are addictive and Narcan is available by prescription or from pharmacy.: No Condition: Stable
--- NOTE | 2023-06-12 13:42 | RS.OTINEVL ---
Subjective Patient information Date of Evaluation: 06/12/23 Date of Arrival on Unit: 06/06/23 Admitted From:: Home Diagnosis: Fever, Altered Mental Status PRECAUTIONS: Fall risk Usual Living Arrangement: With Spouse Living Arrangement Comments: Private home Home Environment: House, Stairs (few) and Rail Medical History: Hypertension, Dementia and Arthritis Medical History Comments:: Sepsis to R/o UA, Afib, Prostatitis, HTN, Dementia Surgical History Comments:: Bilateral inguinal herna repair and umbilical hernia repair, as well as nasal surgery. Medications: Refer to chart Subjective Information/ Patient Comments:: "That knee hurts, well they both really hurt." Level of function Prior to this admission, the patient could do the following:: Independent Selfcare, Independent Ambulation and Participated in Social Activities Outside home Abilities prior to this admission: is able to take her out to eat at [employer] before he got sick. Current Level of Function: Independent Current Equipment Used at Home: None Pain Assessment Pain Pain Location Body Site: Back Pain Aggravating Factors: Changing Position, Sitting and Walking Pain Alleviating Factors: Standing Interventions Objective Patient Orientation: Person Current Interventions: Telemetry and Eddy Catheter Observation: Pt requires verbal cues to complete tasks. Pt is max assist with donning his shoes. Pt is min A for supine to sit EOB. Mod A x 2 to stand from EOB to Walker. Pt has a catheter. Pt has bruising to the Left elbow and anterior arm. Pt is very good trying to cover up his impairments. Interventions ROM Right Upper Extremity AROM: WFL's Left Upper Extremity AROM: WFL's Strength Right Upper Extremity: Mild Weakness Left Upper Extremity: Mild Weakness Sensation Right Upper Extremity: Intact/Normal Left Upper Extremity: Intact/Normal Comments:: Pt's BUE customer relations specialist is 4+/5. Balance Sitting Balance Static Sitting Balance: Good Dynamic Sitting Balance: Good Standing Balance Static Standing Balance: Poor Dynamic Standing Balance: Poor ADL Skills Self Feeding Self Feeding: Independent Grooming Grooming: Min Assist and 1 person assist Grooming Set-up: Standing Bathing Bathing UE: Not Tested Bathing LE: Not Tested Dressing Dressing UE: Not Tested Dressing LE: Max Assist and 1 person assist Toilet Management Toilet Hygiene: Min Assist and 1 person assist Toilet Clothing Management: Min Assist and 1 person assist Functional Mobility Bed Mobility Rolling R/L: Min Assist and Verbal Cues Scooting: Independent and Verbal Cues Supine to Sit: Min Assist and Verbal Cues Transfers Sit to Stand: Mod Assist, 2 person assist and Verbal Cues Stand to Sit: Min Assist and Verbal Cues Stand Pivot Transfers: Min Assist and Verbal Cues Ambulation Weight Bearing Status: FWB Assistive Device Used: Rolling Walker Assistance needed with Ambulation: Min Assist and 1 person assist Safety Awareness Safety Awareness: Poor MICHAEL INDEX SCORE: . Additional Treatment Performed Time with patient Length of Evaluation: 21 Total treatment time: 21 Activities Do you enjoy playing games?: Yes Would you be interested in leaving your room for activities?: Yes Would you enjoy group activities?: Yes Do you have difficulty with your vision?: No Patient Interests:: Watching Television and Visiting/Socializing Patient Education Patient Education: Home Safety and Education of Plan of Care Teaching Recipient: Patient Teaching Methods: Discussion Assessment Problem List:: Decreased level of function, Requires training/education, Decreased safety/Risk of falls, Weakness and Cognitive status limits abilities Rehab Potential: Fair Further Therapy Indicated?: Yes Evaluation Complexity: HISTORY: Medium, EXAM OF BODY SYSTEMS: Medium and CLINICAL DECISION MAKING: Medium Patient's Goal(s): To be able to go home. Short Term Goals Goals GOAL 1: Pt to increase toilet transfers to CGA with Rw. Goal to be met by: 06/19/23 Progress Towards Goal:: 0-15% GOAL 2: Pt to increase dyn. std. bal. to F+. Goal to be met by: 06/19/23 Progress Towards Goal:: 0-15% GOAL 3: Pt to be (I) with donning his shoes. Goal to be met by: 06/19/23 Progress Towards Goal:: 0-15% GOAL 4: Pt to increase BUE strength to 4+/5. Goal to be met by: 06/19/23 Progress Towards Goal:: 0-15% Coal Cager Goals GOAL 1: Pt to be (I) with Toilet transfers. Goal to be met by: 06/23/23 Progress Towards Goal:: 0-15% GOAL 2: Pt to be (I) with self cares. Goal to be met by: 06/23/23 Progress Towards Goal:: 0-15% GOAL 3: Pt to increase dyn. std. bal. to G-. Goal to be met by: 06/23/23 Progress Towards Goal:: 0-15% Plan Plan of Care: Therapeutic EX, Neuromuscular Re-Educ, Therapeutic Activity and Self-Care/Home Management Frequency of Treatment: 1-2 X day, as tolerated Duration of Treatment: 2 Weeks Anticipated Discharge Destination: Home Treatment Diagnosis (ICD 10 Codes): Weakness R53.1, Need for assistance with personal care Z74.1 Has the Physician been added for Co-signature?: Yes
[2023-06-12] MEDS ORDERED: NAMENDA PO SCH (21:00)
[2023-06-12] MEDS ORDERED: CATAPRES PO SCH (21:00)
[2023-06-13] MEDS ORDERED: SYNTHROID PO SCH (06:00)
[2023-06-14 20:51] LABS: PROSTATE SPECIFIC AG, SERUM 6.4
== END 2023-06-12 13:00 | disposition swing bed (61) | DRG 725 ==
LOC: MEDSURG B 13:45 → ED 13:45 → MEDSURG B 21:53
PROVIDERS: ADMIT Hospitalist; ATTEND Physician Assistant
DX: A41.9 Sepsis, unspecified organism; N13.8 Other obstructive and reflux uropathy; F03.90 Unspecified dementia, unspecified severity, without behavioral disturbance, psychotic disturbance, mood disturbance, and anxiety; N40.1 Benign prostatic hyperplasia with lower urinary tract symptoms; E87.1 Hypo-osmolality and hyponatremia; G93.41 Metabolic encephalopathy; Z20.822 Contact with and (suspected) exposure to COVID-19; I10 Essential (primary) hypertension; I48.91 Unspecified atrial fibrillation; R50.9 Fever, unspecified